=== PATIENT | female | born 1965 | race Caucasian/White ===

== ENCOUNTER 2020-03-17 15:33 | Outpatient (CLI) | payer OTHER, SELFPAY ==
--- NOTE | ~2020-03-17 | XR_ITS ---
XR_CERV2-3V_CR DATE: 03/17/2020 16:00 INDICATION: Neck pain, diminished range of motion. Vertigo. TECHNIQUE: AP, open-mouth, lateral views COMPARISON: 01/23/2007 cervical spine FINDINGS: There is straightening of the cervical spine. There is moderately severe degenerative disc disease at C3-4, C4-5, C5-6 and C6-7. There is moderate degenerative disc disease and mild anterolisthesis at C7-T1. C1 and C2 are normally aligned and the odontoid process is intact. No fracture or dislocation, locked facet or prevertebral soft tissue swelling. There is degenerative spurring at the uncovertebral joints throughout the cervical spine. IMPRESSION: Straightening of the cervical spine Extensive degenerative changes Reviewed, dictated and finalized at Location A. Reviewed, dictated and finalized at location B. UCT LINE MANAGER
== END 2020-03-17 15:34 | disposition home or self-care (01) ==
LOC: ANHIMG 15:39
PROVIDERS: PCP Family Medicine; Visit Provider Otolaryngology
DX: H81.10 Benign paroxysmal vertigo, unspecified ear (principal); M50.30 Other cervical disc degeneration, unspecified cervical region
CPT/HCPCS: 72040

== ENCOUNTER 2020-04-04 15:13 | Outpatient (CLI) | payer OTHER, SELFPAY ==
--- NOTE | ~2020-04-04 | US_ITS ---
EXAMINATION: US carotid duplex BI DATE: 04/04/2020 16:04 INDICATION: Headache. TECHNIQUE: Grayscale, color Doppler, and pulsed Doppler images of the cervical carotid arteries were obtained. The degree of vessel stenosis is placed in one of the following categories: normal, <50%, 5 0-69%, >=70% but less than near-occlusion, near-occlusion, or total occlusion. Note that percent sten osis relative to normal distal artery lumen diameter is indirectly measured from velocity measurement s as described by Sanjeev, et al. Radiology 2003; [id number]:[id number]. COMPARISON: None. FINDINGS: RIGHT: The right common carotid artery (CCA) peak systolic velocity (PSV) is 157 cm/s. The right internal ca rotid artery (ICA) PSV is 85 cm/s. The right ICA end-diastolic velocity (EDV) is 32 cm/s. The right I CA/CCA PSV ratio is 0.5. Grayscale and color Doppler images yield an estimate of <50% diameter reduct ion from plaque in the ICA. There is antegrade flow in the right vertebral artery. LEFT: The left CCA PSV is 111 cm/s. The left ICA PSV is 75 cm/s. The left ICA EDV is 36 cm/s. The left ICA/ CCA PSV ratio is 0.7. Grayscale and color Doppler images yield an estimate of <50% diameter reduction from plaque in the ICA. There is antegrade flow in the left vertebral artery. IMPRESSION: 1. <50% stenosis in the right internal carotid artery. 2. <50% stenosis in the left internal carotid artery. Reviewed, dictated and finalized at location B. NDITIONER
== END 2020-04-04 15:14 | disposition home or self-care (01) ==
PROVIDERS: PCP Family Medicine; Visit Provider Family Medicine
DX: I65.23 Occlusion and stenosis of bilateral carotid arteries (principal); R51.9 Headache, unspecified
CPT/HCPCS: 93880

== ENCOUNTER → 2020-04-19 17:11 | Outpatient (CLI) | payer OTHER, SELFPAY ==
--- NOTE | ~2020-04-19 | XR_ITS ---
EXAMINATION: XR chest 2V 04/19/2020 17:36 INDICATION: Dyspnea PROCEDURE: 2 view chest COMPARISON: 06/07/2017 FINDINGS: The lungs are clear. Mild cardiomegaly. There are no pleural effusions. There is no pneumo thorax suspected. IMPRESSION: 1: NO ACUTE CARDIOPULMONARY DISEASE. Reviewed, dictated and finalized at location A. RAFT ENGINE DISMANTLER
== END ==
PROVIDERS: PCP Family Medicine; Visit Provider Family Medicine
DX: R06.00 Dyspnea, unspecified (principal)
CPT/HCPCS: 71046

== ENCOUNTER → 2020-04-27 11:55 | Outpatient (CLI) | payer OTHER, SELFPAY ==
--- NOTE | ~2020-04-27 | CT_ITS ---
EXAMINATION: CTA chest PE protocol EXAM DATE: 04/27/2020 12:24 INDICATION: dyspnea, positive d-dimer. TECHNIQUE: Spiral CTA of the chest (pulmonary arteries) was performed with 100 cc Omnipaque 350 intr avenous contrast injection. Images were acquired during the pulmonary arterial phase. Coronal maxi mum intensity projection 3D-reconstructions were created by the technologist on dedicated workstation . Axial, coronal and sagittal reformatted images were reviewed. The dose-length product (DLP) for t his examination was 490.95 mGy-cm. The exposure was tailored according to patient size (auto mA exp osure control), and iterative reconstruction (ASIR) was used as additional dose reduction technique. There is no prior study for comparison. FINDINGS: Pulmonary arteries are well opacified and without intraluminal filling defects. No thora cic aortic dissection. Couple of basilar nodules 3 mm or less likely noncalcified granulomas.. Ther e are no pleural or pericardial effusions. Tracheobronchial tree is patent. There is no mediastin al, hilar or axillary lymphadenopathy. There is no pneumothorax. Mild cardiomegaly. No evidence of coronary arterial calcification. Upper abdomen is unremarkable. The bones are unremarkable. IMPRESSION: 1. No pulmonary emboli or acute findings. 2. Mild cardiomegaly. Reviewed, dictated and finalized at location B. CONTROL OPERATOR
== END ==
PROVIDERS: PCP Family Medicine; Visit Provider Family Medicine
DX: R06.02 Shortness of breath (principal); R79.1 Abnormal coagulation profile; I51.7 Cardiomegaly
CPT/HCPCS: 71275; Q9967

== ENCOUNTER 2020-06-06 14:31 | Outpatient (CLI) | payer OTHER, SELFPAY ==
--- NOTE | ~2020-06-06 | XR_ITS ---
EXAMINATION: XR chest 2V 06/06/2020 15:49 INDICATION: Upper epigastric pain. PROCEDURE: PA and lateral views of the chest COMPARISON: No prior studies for comparison. FINDINGS: The lungs are clear. The cardiomediastinal silhouette is large. There are no pleural effus ions. There is no pneumothorax suspected. IMPRESSION: 1: NO ACUTE CARDIOPULMONARY DISEASE. Reviewed, dictated and finalized at location B. D CARE AIDE
--- NOTE | ~2020-06-06 | XR_ITS ---
EXAMINATION: XR abdomen/kub 1V INDICATION: Epigastric abdominal pain TECHNIQUE: Supine views of the abdomen were obtained on 2 radiographs. COMPARISON: None FINDINGS: There are no dilated loops of bowel. No free intraperitoneal gas is identified. Cholecystec darrel clips are noted in the right upper quadrant. There are phleboliths of the left pelvis. Mild hip osteoarthritis is noted. IMPRESSION: 1. No radiographic correlate for the patient's symptoms. Reviewed, dictated and finalized at location A. ATOR COATING FURNACE
[2020-06-06 15:07] LABS: Basophils Absolute Auto 0.1 K/mm3 (0.0-0.1); Basophils Percent Auto 0.8 % (0.2-1.2); Eosinophils Absolute Auto 0.2 K/mm3 (0-0.3); Eosinophils Percent Auto 2.4 % (0-4.4); Hematocrit 40.8 % (37.0-47.0); Hemoglobin 13.6 g/dL (12.0-15.0); Immature Granulocyte Absolute 0.01 K/mm3 (0.00-0.031); Immature Granulocyte Percent A 0.2 % (0-0.5); Immature Platelet Fraction Pct 11.8 % (0.9-11.2); Lymphocytes Absolute Auto 1.25 K/mm3 (0.9-3.2); Lymphocytes Percent Auto 19.9 % (18.3-44.2); Mean Corpuscular HGB Conc 33.3 g/dl (32-36); Mean Corpuscular Hemoglobin 28.8 pg (26-34); Mean Corpuscular Volume 86.4 fl (80-100); Mean Platelet Volume 12.9 fl (7.4-10.4); Monocytes Absolute Auto 0.6 K/mm3 (0.1-0.6); Monocytes Percent Auto 8.9 % (2.6-8.5); Neutrophils Absolute Auto 4.3 K/mm3 (1.3-6.7); Neutrophils Percent Auto 67.8 % (45.5-73.1); Platelet Count Result 179 k/mm3 (150-375); Red Blood Count 4.72 M/mm3 (4.2-5.4); Red Cell Distribution Width 13.4 % (11.5-14.5); White Blood Count 6.3 K/mm3 (4.5-10.0)
[2020-06-06 15:20] LABS: Alanine Aminotransferase 52 U/L (4-35); Albumin Level 4.1 g/dL (3.5-5.1); Alkaline Phosphatase 68 U/L (38-126); Amylase 52 U/L (30-110); Anion Gap 12 mmol/L (8-16); Aspartate Amino Transferase 36 U/L (14-36); Bilirubin,Total 1.4 mg/dL (0.2-1.3); Blood Urea Nitrogen 17 mg/dL (7-17); Carbon Dioxide 20 mmol/L (22-30); Chloride 106 mmol/L (98-107); Estimated Glomerular Filt Rate 51; Glucose 111 mg/dL (65-105); Lipase 74 U/L (23-300); Potassium 4.4 mmol/L (3.4-5.0); Sodium 138 mmol/L (137-145)
== END 2020-06-06 14:32 | disposition home or self-care (01) ==
PROVIDERS: PCP Family Medicine; Visit Provider Family Medicine
DX: R10.9 Unspecified abdominal pain (principal); R05 Cough
CPT/HCPCS: 36415; 71046; 74018; 80053; 82150; 83690; 85025; 85055

== ENCOUNTER 2020-06-07 15:30 | Inpatient (IN) | payer OTHER, SELFPAY ==
[2020-06-07] VITALS (10 sets, daily range): BP systolic 114–131; BP diastolic 85–93; PULSE 86–111; RESP 17–27; TEMP 36.3–36.5; O2SAT 96–100; BMI 27.7
--- NOTE | ~2020-06-07 | XR_ITS ---
EXAMINATION: XR chest 2V 06/07/2020 16:15 INDICATION: Chest pain and shortness of breath PROCEDURE: PA and lateral views of the chest COMPARISON: 06/06/2020 FINDINGS: The lungs are clear. The cardiomediastinal silhouette is within normal limits. There are no pleural effusions. There is no pneumothorax suspected. IMPRESSION: 1: NO ACUTE CARDIOPULMONARY DISEASE. Reviewed, dictated and finalized at location B. RPILLAR MECHANIC
--- NOTE | 2020-06-07 15:33 | ECG_ITS ---
Measurements Intervals [place] Rate: 96 P: 59 MT: 170 QRS: 52 QRSD: 92 T: 180 QT: 304 QTc: 385 Interpretive Statements SINUS RHYTHM POSSIBLE LEFT ATRIAL ENLARGEMENT LOW QRS VOLTAGE- DIFFUSE LEADS ST ELEVATION IN ANTEROLAT/INF LEADS- CONSIDER PERICARDITIS, ACUTE INJURY OR EARLY REPOLARIZATION ABNORMALITY ABNORMAL ECG Electronically Signed On 06-07-2020 16:06:59 LAND AGENT by Jonathan Reeves D.O.
[2020-06-07 15:56] LABS: Basophils Percent Auto 0.7 % (0.2-1.2); Eosinophils Absolute Auto 0.2 K/mm3 (0-0.3); Eosinophils Percent Auto 2.6 % (0-4.4); Hematocrit 39.4 % (37.0-47.0); Hemoglobin 13.2 g/dL (12.0-15.0); Immature Granulocyte Absolute 0.01 K/mm3 (0.00-0.031); Immature Granulocyte Percent A 0.2 % (0-0.5); Lymphocytes Absolute Auto 1.04 K/mm3 (0.9-3.2); Lymphocytes Percent Auto 17.2 % (18.3-44.2); Mean Corpuscular HGB Conc 33.5 g/dl (32-36); Mean Corpuscular Hemoglobin 28.9 pg (26-34); Mean Corpuscular Volume 86.4 fl (80-100); Mean Platelet Volume 12.5 fl (7.4-10.4); Monocytes Absolute Auto 0.6 K/mm3 (0.1-0.6); Monocytes Percent Auto 9.1 % (2.6-8.5); Neutrophils Absolute Auto 4.2 K/mm3 (1.3-6.7); Neutrophils Percent Auto 70.2 % (45.5-73.1); Platelet Count Result 179 k/mm3 (150-375); Red Blood Count 4.56 M/mm3 (4.2-5.4); Red Cell Distribution Width 13.8 % (11.5-14.5)
[2020-06-07 16:10] LABS: Anion Gap 10 mmol/L (8-16); Blood Urea Nitrogen 17 mg/dL (7-17); Calcium 9.9 mg/dL (8.4-10.2); Carbon Dioxide 21 mmol/L (22-30); Chloride 107 mmol/L (98-107); Estimated CRCL calculation 59 ml/min; Estimated Glomerular Filt Rate 57; Glucose 95 mg/dL (65-105); Potassium 4.1 mmol/L (3.4-5.0); Sodium 138 mmol/L (137-145)
[2020-06-07 16:13] LABS: INR 1.2; Prothrombin Time 15.5 Seconds (11.1-14.7)
[2020-06-07 16:28] LABS: Troponin I 0.138 ng/mL (0.000-0.034)
[2020-06-07 16:47] LABS: NT Pro B Type Natriuretic Pept 7180 PG/ML (5-100)
[2020-06-07] MEDS: ASPIRIN 81 MG CHEWABLE TABLET 324 MG PO (17:00)
--- NOTE | 2020-06-07 17:01 | ED.CHESTPAIN ---
HPI - Chest Pain General Chief Complaint: Chest Pain Stated Complaint: heart issues from biometrics consultant Time Seen by Provider: 06/07/20 16:47 Source: patient Mode of arrival: ambulatory Limitations: no limitations History of Present Illness HPI narrative: This patient is a 55 year old female previously healthy who presents for evaluation of shortness of breath and chest pain with exertion. Patient has been dealing with shortness of breath and chest heaviness since December. She has had a normal treadmill stress test and outpatient evaluation of epigastric pain. She reports her shortness of breath with exertion has gotten worse. She states she can barely walk down the hallway without stopping to catch her breath. She also report heaviness across her chest that occurs with exertion. She reports cough with laying flat, but denies fever, or chills. She denies leg swelling or calf pain. She was evaluated by her primary care physician and Dr. Hyde today in clinic. Dr. Hyde reports patient has signs of CHF. He performed an ECHO and it shows an Ejection Fraction of 25%. He sent patient to ER and states patient will likely get cardiac catheterization tomorrow. Patient reports mild heaviness and she rates it 2/10. Related Data Home Medications Medication Instructions Recorded Confirmed norethindrone acetate 1 mg-ethinyl 1 tablet PO DAILY 09/03/19 06/07/20 estradiol 5 mcg tablet cholecalciferol (vitamin D3) 25 mcg PO DAILY 06/07/20 06/07/20 elderberry fruit [Elderberry] 200 mg PO DAILY 06/07/20 06/07/20 jsyuyvmxhuiq-nmb-pqhm-FA-vit K 1 tablet PO DAILY 06/07/20 06/07/20 [Adults Multivitamin] Allergies Allergy/AdvReac Type Severity Reaction Status Date / Time Penicillins Allergy Unknown Unknown Verified 06/06/20 13:45 Review of Systems Review of Systems: All systems reviewed & are unremarkable except as noted in HPI and below Constitutional: Constitutional: Denies chills and Denies fever(s) Cardiovascular: Cardiovascular: Reports chest pain and Denies rapid heart rate Respiratory: Respiratory: Reports cough and Reports dyspnea Gastrointestinal: Gastrointestinal: Reports abdominal pain, Reports nausea and Denies vomiting [facility] Past Medical History Medical History (Updated 06/07/20 @ 17:27 by Beatrice Amador MD) BPPV (benign paroxysmal positional vertigo) History of cervical fracture C1 Left shoulder pain Surgical History Surgical History History of cholecystectomy Status post hernia repair Social History Social History Smoking status: Never smoker Second hand tobacco smoke exposure: No Alcohol intake: current Drinks per week: 4 Substance use: never Substance use type: does not use Gender identity (if verbalized by the patient): Female Spiritual care concerns: No Exam Const: General: no acute distress and alert Orientation/consciousness: patient oriented x3 Eyes: EOM: EOMs intact bilaterally Chest: Chest palpation & inspection: normal inspection of the chest Resp: Effort & Inspection: normal respiratory effort and no retractions Auscultation: clear to auscultation bilaterally Cardio: Rate: regular rate Rhythm: regular rhythm Heart sounds: no murmurs GI: GI Palp: Yes Soft to palpation, No Tenderness to palpation present (GI) and No Guarding due to palpation present (GI) Auscultation: normal bowel sounds Skin: General skin exam: normal color Rashes: no rashes Neuro: General: patient oriented x3 Extrem: General: no pedal edema Course Reevaluation(s) Reevaluation #1: I Discussed with patient the plan to admit to hospital . She understands she will be see by biometrics consultant for possible cardiac catheterization Date: 06/07/20 Time: 17:20 Consultations Consultation #1: I discussed case with Elisha Gutierrez who accepts to hospitalist service. I Spoke wit
[2020-06-07] MEDS: NITROGLYCERIN OINTMENT 1 INCH DOSE 0.5 INCH TRANSDERM (17:02)
[2020-06-07] MEDS: ENOXAPARIN 80 MG/0.8 ML SYRINGE SUB-Q (18:57)
[2020-06-07] MEDS: FUROSEMIDE INJ 40 MG/4 ML VIAL IV PUSH (18:58)
--- NOTE | 2020-06-07 20:02 | ADMIMU ---
This patient, Fide Blas, was admitted to IMU status, and placed in IMU Room 205-02 on 06-07-20 at 1940. Patient/family oriented to hospital policies and general routines including ID bracelet, bed and alarms, visiting hours, pain management, procedures, bathroom and other care routines, personal items, smoking policy, room service/diet, and visiting hours. Valuables list has been completed. Information on how to activate the Rapid Response Team has been discussed. Patient/Family are encouraged to report perceived risks to care and to ask questions if they do not understand what they are told or what they should do.
[2020-06-07 20:13] LABS: Troponin I 0.147 ng/mL (0.000-0.034)
[2020-06-07 22:17] LABS: Troponin I 0.128 ng/mL (0.000-0.034)
--- NOTE | 2020-06-07 22:39 | PC.NURSE ---
1929 report received report from MAURO Bain
[2020-06-08] VITALS (24 sets, daily range): BP systolic 89–108; BP diastolic 63–80; PULSE 68–92; RESP 12–28; TEMP 36.2–36.7; O2SAT 94–100
--- NOTE | 2020-06-08 01:57 | PM.IMHP ---
H&P: HPI History of Present Illness Date/Time: 06/07/20 23:50 Chief Complaint: Shortness of breath and chest pressure Narrative: Fide Blas is a 55 year old postmenopausal female who presented to the ER from the master of ceremonies's office due to shortness of breath and chest pain. 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 However, in October she began having frontal and occipital headaches. She had an x-ray of her neck which demonstrated severe degenerative changes. It was thought that her headaches were due to stress. 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 She had also had had vertigo with laying down and rolling to the right side. She was referred to ENT agreed her symptoms fit with benign positional vertigo. Also in December she began having symptoms of shortness of breath, GERD, chest heaviness. When her symptoms persisted she was sent for an exercise stress test in January which was negative. She reports that she is very active in up until June was exercising quite vigorously. Once the COVID-19 crisis started she had not been exercising quite as much. In March she began having heartburn and feeling as if she needed to belch. She was also having some chest pressure. She was started on famotidine at that time. A D-dimer was checked at that time. She had a CT a which was negative for PE. A few days later in early April she came down with COVID-19 and had a moderate case of symptoms. She was ill for approximately 3 weeks. She reports that after Covid she felt better for about a week and then began having dyspnea on exertion, paroxysmal nocturnal dyspnea with coughing while supine, and paroxysmal nocturnal dyspnea. She has only been able to walk about 50 yd without marked dyspnea. She has worsening heaviness across her chest with exertion. She has not noticed any lower extremity swelling or calf pain. Given her symptoms of CHF she was referred to cardiology Dr. Steve Hyde. He did a bedside echo which demonstrated EF of 25% and sent the patient to the ER for further evaluation. In the ER the patient was reporting chest heaviness of the 2/10 in intensity. She reports her symptoms almost immediately after she was given a dose of Lasix and some nitropaste in the ER. She has had no further heaviness since arrival to the IMU. She has noticed palpitations with exertion. She reports that ever since December she has noticed that her fitness watch reports increased heart rate. She reports that previously her heart rate was around 50-60 at baseline but is now been reading between 80 and 90. Review of Systems Review of Systems: Narrative: 12 systems were reviewed with pertinent positives and negatives per HPI. Except as documented in the HPI, all other systems were reviewed and are negative. [facility] Past Medical History Medical History (Updated 06/08/20 @ 02:29 by Yen Rand DO) Adhesive capsulitis of shoulder Left BPPV (benign paroxysmal positional vertigo) History of cervical fracture C1 with surgical repair in 2006 Postmenopausal hormone therapy Surgical History Surgical History (Updated 06/08/20 @ 02:21 by Yen Rand DO) History of cholecystectomy 2006 History of right inguinal hernia repair 1997 Family History Family History (Updated 06/08/20 @ 02:22 by Yen Rand DO) Father Hypertension Pacemaker Mother Arthritis Sibling Obese Social History Social History (Updated 06/08/20 @ 02:24 by Yen Rand DO) Social History: She lives with her of 30 years. She has 2 adult children who are healthy. She drinks 3-4 alcoholic beverages each weekend on average. She is a lifelong nonsmoker and does not use illicit substances. 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 She is active and exercises regularly. She has 1 brother who is relatively healthy. Her parents
--- NOTE | 2020-06-08 06:00 | ECHO_ITS ---
Patient Info Name: Fide Blas Age: 55 years : 1965 Gender: Female Ht: 66 in Wt: 171 lbs BSA: 1.92 m2 HR: 87 bpm BP: 89 / 67 mmHg Heart Rhythm: Sinus Rhythm Technical Quality: Good Exam Date: 06/08/2020 2:32 PM Exam Location: [facility] Pulmonary Patient Status: Inpatient Admit Date: 06/07/2020 Staff Ordering Physician: Beatrice Amador MD Freezer Operator: Deni Lara, MICHELE, RT Attending Provider: Marychuy Sanchez MD Referring Physician: Marjorie PINTO; Exam Type: CA echo dop color flow w con Study Info Indications R06.02 - Shortness of breath R07.89 - Other chest pain Complete two-dimensional, color flow and Doppler transthoracic echocardiogram is performed. Strain analysis performed. Summary 1. Complete two-dimensional, color flow and Doppler transthoracic echocardiogram is performed. 2. Left ventricle is of normal size, with mild concentric hypertrophy. There is severe global hypokinesis present with sparing of the apex. Abnormal septal motion is present possibly secondary to a bundle branch block. The visual ejection fraction is 15-20%, the calculated ejection fraction is 20 4%. Grade 2 diastolic dysfunction is present. The global longitudinal strain is-7%, severely reduced, consistent with severe left ventricular dysfunction. 3. Right ventricular chamber dimension is mildly enlarged with moderate hypokinesis.. 4. Left atrial chamber dimension is moderately enlarged. 5. Right atrial chamber dimension is mildly enlarged. 6. There is mild to moderate tricuspid valve regurgitation. 7. No pulmonary hypertension, estimated pulmonary arterial systolic pressure is 33 mmHg. 8. Normal sinus rhythm. Left Ventricle Left ventricular chamber dimension is normal. Left ventricular systolic function is severely reduced, estimated at 15-20%. There is mildly increased left ventricular wall thickness. Left ventricular septal wall motion is abnormal with septal motion related to bundle branch block. The left ventricular diastolic function is grade II diastolic dysfunction. Global longitudinal strain is severely elevated at 7 %. Right Ventricle Right ventricular chamber dimension is mildly enlarged with moderate hypokinesis.. Right ventricular systolic function is reduced. Left Atria Left atrial chamber dimension is moderately enlarged. Right Atria Right atrial chamber dimension is mildly enlarged. Aortic Valve The aortic valve is trileaflet. There is no aortic valve sclerosis. There is no aortic valve stenosis. There is no aortic valve regurgitation. Pulmonic Valve The pulmonic valve is normal. There is no pulmonic valve stenosis. There is no pulmonic regurgitation. Mitral Valve The mitral valve has normal leaflets. There is no mitral valve stenosis. There is trace mitral valve regurgitation. Tricuspid Valve The tricuspid valve leaflets are normal. There is no significant tricuspid valve stenosis. There is mild to moderate tricuspid valve regurgitation. No pulmonary hypertension, estimated pulmonary arterial systolic pressure is 33 mmHg. Pericardium/Pleural The pericardium appears normal. There is no pericardial effusion. Inferior Vena Cava Normal inferior vena cava with <50% collapse upon inspiration consistent with Empty right atrial pressure, 10 mmHg. Aorta The aortic root size at the sinus of Valsalva is normal. The prox ascending aorta size is normal. Left Ventricular Outflow Tract
--- NOTE | 2020-06-08 06:05 | ECG_ITS ---
Measurements Intervals [place] Rate: 82 P: 59 MD: 169 QRS: 52 QRSD: 108 T: 135 QT: 396 QTc: 465 Interpretive Statements SINUS RHYTHM POSSIBLE LEFT ATRIAL ENLARGEMENT LOW QRS VOLTAGE- DIFFUSE LEADS ST ELEVATION IN ANTEROLAT/INF LEADS- CONSIDER PERICARDITIS, ACUTE INJURY OR EARLY REPOLARIZATION ABNORMALITY ABNORMAL ECG Electronically Signed On 06-08-2020 7:11:19 CUSTOMS COMPLIANCE DIRECTOR by Jonathan Reeves D.O.
[2020-06-08 06:49] LABS: Anion Gap 10 mmol/L (8-16); Blood Urea Nitrogen 17 mg/dL (7-17); Calcium 9.1 mg/dL (8.4-10.2); Carbon Dioxide 22 mmol/L (22-30); Chloride 107 mmol/L (98-107); Estimated CRCL calculation 54 ml/min; Estimated Glomerular Filt Rate 51; Glucose 89 mg/dL (65-105); Magnesium 1.5 mg/dL (1.6-2.3); Potassium 3.9 mmol/L (3.4-5.0); Sodium 139 mmol/L (137-145)
[2020-06-08 07:04] LABS: Troponin I 0.207 ng/mL (0.000-0.034)
[2020-06-08] MEDS: FAMOTIDINE 20 MG TABLET 40 MG PO (08:16)
--- NOTE | 2020-06-08 08:42 | PM.CNCAR ---
Assessment and Plan Additional Plan symptoms of exertional chest pain dyspnea as well as positional dyspnea in a 55-year-old lady without previous cardiopulmonary problems and evidence of significant cardiomyopathy by quick look echo that was done in the office yesterday. We will bring the patient for left heart catheterization this morning to for further evaluation of this. Further recommendations will be pending completion of that exam. Jairo Mann MD [facility] History of Present Illness History of Present Illness Consult date/time: 06/08/20 08:42 Consult reason: chest pain and shortness of breath Reason For Visit: CHF Narrative: This is a very pleasant 55-year-old lady of seeing at the request of the hospitalist because of symptoms of chest pain and dyspnea and recently identified systolic cardiomyopathy as an outpatient yesterday. The patient was seen in the office yesterday by my partner, Dr. Hyde in a somewhat urgent fashion at the request of her primary care physician. She has been having symptoms for about a month or so of episodes of exertional dyspnea with chest pain that have been of concern. The symptoms occurred transiently in the fall which triggers stress test of some sort to be done in January which she was told was a negative exam. She then contracted trejo virus in April about a month ago and had some symptoms of shortness of breath or worsening with that. Following that she had symptoms of positional dyspnea and coughing and was referred to the office [facility] when a chest x-ray was done yesterday demonstrating enlargement of her cardiac silhouette. The patient was seen in the office in consultation a a quick look echocardiogram was done which demonstrated evidence of left ventricular dilatation with global hypocontractility. Sugar ECG demonstrated sinus mechanism with low QRS voltage. She was admitted to the hospital for evaluation and angiography was recommended for this morning which did have been a little later today. 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 This is been restress full during the trejo virus pandemic. Review of Systems Constitutional: Constitutional: Reports no additional constitutional complaints Eyes: Eyes: Reports no additional eye complaints ENT: Reports system reviewed and no additional complaints, except as documented Cardiovascular: Cardiovascular: Reports as per HPI Respiratory: Respiratory: Reports dyspnea on exertion Gastrointestinal: Gastrointestinal: Reports no additional gastrointestinal complaints Musculoskeletal: Musculoskeletal: Reports no additional musculoskeletal complaints Neurologic: Reports system reviewed and no additional complaints, except as documented Psychiatric: Psychiatric: Reports no additional psychiatric complaints Endocrine: Endocrine: Reports no additional endocrine complaints Hematologic/Lymphatic: Hematologic/Lymphatic: Reports no additional hematologic/lymphatic complaints Allergic/Immunologic: Allergic/Immunologic: Reports no additional allergic/immunologic complaints PMFSH Past Medical History Medical History (Updated 06/08/20 @ 02:29 by Yen Rand DO) Adhesive capsulitis of shoulder Left BPPV (benign paroxysmal positional vertigo) History of cervical fracture C1 with surgical repair in 2006 Postmenopausal hormone therapy Surgical History Surgical History (Updated 06/08/20 @ 02:21 by Yen Rand DO) History of cholecystectomy 2006 History of right inguinal hernia repair 1997 Family History Family History (Updated 06/08/20 @ 02:22 by Yen Rand DO) Father Hypertension Pacemaker Mother Arthritis Sibling Obese Social History Social History (Up
--- NOTE | 2020-06-08 08:46 | WPDMODSED ---
Moderate Sedation Note-Pt Data Patient Data Diagnosis: exertional chest pain /dyspnea newly diagnosed left ventricular systolic dysfunction Present Complaint: shortness of breath /chest pain with modest activity Procedure to be performed/Plan: left heart catheterization Allergies Allergy/AdvReac Type Severity Reaction Status Date / Time Penicillins Allergy Unknown Unknown Verified 06/06/20 13:45 Home Medications Medication Instructions Recorded Confirmed Type norethindrone acetate 1 mg-ethinyl 1 tablet PO HS 09/03/19 06/07/20 History estradiol 5 mcg tablet famotidine 40 mg tablet 40 mg PO DAILY #30 tablet 04/19/20 06/07/20 Rx ascorbate calcium (vitamin C) 500 mg PO DAILY 06/07/20 06/07/20 History cholecalciferol (vitamin D3) 25 mcg PO DAILY 06/07/20 06/07/20 History elderberry fruit [Elderberry] 200 mg PO DAILY 06/07/20 06/07/20 History vqczfaljeraq-ktw-bluh-FA-vit K 2 tablet PO DAILY 06/07/20 06/07/20 History [Adults Multivitamin] Current Medications: Active Medications Famotidine (Famotidine 20 Mg Tablet) 40 mg PO DAILY RAMONITA Last Admin: 06/08/20 08:16 Dose: 40 mg Documented by: Acetaminophen (Ofirmev 1,000 Mg Ivpb) 1,000 mg in 100 mls @ 400 mls/hr IVPB Q6H PRN PRN Reason: Mild Pain (1-3) or Fever Stop: 06/08/20 17:18 Morphine Sulfate (Morphine Sulfate (*Crx) 4 Mg/Ml Inj) 4 mg IV PUSH Q2H PRN PRN Reason: Pain Rated 7-10 Ondansetron HCl (Ondansetron Inj 4 Mg/2 Ml Vial) 4 mg IV PUSH Q4H PRN PRN Reason: Nausea Sedation/Anesthesia: No previous sedation/anesthesia problems (including family history). [facility] Past Medical History Medical History (Updated 06/08/20 @ 02:29 by Yen Rand DO) Adhesive capsulitis of shoulder Left BPPV (benign paroxysmal positional vertigo) History of cervical fracture C1 with surgical repair in 2006 Postmenopausal hormone therapy Surgical History Surgical History (Updated 06/08/20 @ 02:21 by Yen Rand DO) History of cholecystectomy 2006 History of right inguinal hernia repair 1997 Family History Family History (Updated 06/08/20 @ 02:22 by Yen Rand DO) Father Hypertension Pacemaker Mother Arthritis Sibling Obese Social History Social History (Updated 06/08/20 @ 02:24 by Yen Rand DO) Social History: She lives with her of 30 years. She has 2 adult children who are healthy. She drinks 3-4 alcoholic beverages each weekend on average. She is a lifelong nonsmoker and does not use illicit substances. 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 She is active and exercises regularly. She has 1 brother who is relatively healthy. Her parents are in their 80s in her relatively healthy. Primary care physician: Dr. Kael Lee Code status: Full code Surrogate decision maker: Smoking status: Never smoker Second hand tobacco smoke exposure: No Alcohol intake: current Drinks per week: 3 Substance use: never Substance use type: does not use Gender identity (if verbalized by the patient): Female Spiritual care concerns: Yes (Muslim) Mod Sed Physical Exam Physical Exam Pre Procedural Exam: Normal: Appearance, Neck, Throat, Airway, Lungs, Heart Rate, Heart Rhythm, Neuro Exam and Extremities and Variation: Heart Size ( PMI laterally displaced) Hours since solid foods: 12 Hours since liquid intake: 12 Internal Medicine - PN: Obj Da Vital Signs Vital Signs: Vital Signs - 24 hr 06/07/20 15:40 06/07/20 17:21 06/07/20 17:30 Temperature 36.3 C L Pulse Rate 95 91 92 Respiratory Rate 20 17 20 Blood Pressure 114/89 Pulse Oximetry 99 98 100 06/07/20 17:31 06/07/20 17:45 06/07/20 17:46 Temperature Pulse Rate 91 90 111 H Respiratory Rate 17 27 H 21 H Blood Pressure 131/90 127/93 H Pulse Oximetry 98 96 100 06/07/20 19:45 06/07/20 20:00 06/07/20 20:01 Temperature 36.5 C 36.5 C Pulse Rate 93 88 93 Respiratory Rate 20 20
--- NOTE | 2020-06-08 09:18 | WPDCARDPROC ---
Cardiac Cath Procedure Note Date of procedure:: 06/08/20 Performing physician:: Jairo Mann MD Indication:: newly diagnosed left ventricular systolic dysfunction exertional dyspnea/chest pain Brief clinical history:: this is a previously very healthy 55-year-old lady who was seen in the office yesterday for consultation because of exertional dyspnea, positional dyspnea and chest pain. She had an echocardiogram demonstrating significant left ventricular systolic failure. She was then admitted to the hospital for further evaluation. Procedure Procedure performed:: Left heart catheterization Sedation/Medication given:: fentanyl 25 mg Versed 2 mg case start time 8:58 a.m. case end time 9:14 a.m. sedation provided by Isabela Fitch RN, trained observer Access site:: right femoral artery Estimated blood loss:: 10-15 cc Procedure note:: patient was brought to the cardiac catheterization lab in the postabsorptive state the right femoral triangle was prepared in the normal fashion anesthesia was provided with 20 cc of 1% lidocaine infiltrated locally. Using modified Seldinger technique a 5 Lao sheath was placed into the right femoral artery. After this left heart catheterization was carried out. A 5 Lao angled pigtail catheter was used to document left-sided hemodynamics and inject LV g in the PATTEN projection as well as measure pullback pressures across the aortic valve. After this the pigtail catheter was withdrawn and a standard 5 Lao JR4 catheter was used to engage inject the right coronary artery. After this standard 5 Lao FL4 catheter was used to engage inject the left coronary artery. After this the cineangiograms were reviewed and the case was terminated she was taken to holding area for manual sheath removal. 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 Findings:: Hemodynamics: Central aortic pressure is 98/64 left ventricle 98 over to end-diastolic 16. No transvalvular gradient seen on pullback across the aortic valve. Left ventricle: The LV is mildly enlarged there is an interesting pattern of a band of akinesis around the midportion of the left ventricle from the anterior to the mid inferior wall the basal segments in the apical segments contract reasonably well. The global ejection fraction is reduced at about 25%. The left main coronary artery is large caliber short and widely patent the left anterior descending is a medium caliber to in just around the apex the LAD and its branches are smooth and angiographically normal in appearance the circumflex is a medium caliber artery giving rise to the marginal branches the circumflex and its branches are smooth angiographically normal in appearance the right coronary artery is moderate caliber dominant to the posterior circulation the right coronary artery is smooth and angiographically normal in appearance Conclusion:: 1. significant nonischemic cardiomyopathy with a somewhat unusual the pattern of akinesia in the midportion of the LV as discussed above. Ejection fraction is significantly reduced. 2. Right coronary dominant circulation with no evidence of coronary artery disease Jairo Mann MD [facility]
[2020-06-08] MEDS: SODIUM CHLORIDE 0.9% IV 1,000 ML 125 ML IV CONT (14:29)
[2020-06-08] MEDS: PERFLUTREN LIPID MICROSPHERES 1.5 ML VIAL DILUTED TO 10 ML TOTAL VOLUME IV PUSH (15:07)
--- NOTE | 2020-06-08 17:17 | PM.IMPN ---
Progress Note: A&P Assessment and Plan (1) CHF (congestive heart failure): Qualifiers: Heart failure chronicity: acute Heart failure type: systolic Qualified Code(s): I50.21 - Acute systolic (congestive) heart failure Code(s): I50.9 - Heart failure, unspecified Status: Acute Assessment and Plan: 06/08/20 17:17 Patient is a 55-year-old female with no significant cardiac history, apparently had developed dyspnea on exertion and was seen by her primary care physician and had cardiac stress test which was negative however patient's symptoms were persistent and were progressively getting worse, patient was seen by cardiology's office and apparently there was a echo done which showed severe systolic dysfunction, patient was seen by veneer taping machine offbearer and was taken to cardiac lab and had a cardiac catheterization which showed patient has severe nonischemic cardiomyopathy with ejection fraction of 25%, patient denies any family of cardiac disease, patient denies any alcohol abuse, patient did contracted trejo virus in January. There are no other risk factor with cardiomyopathy, patient does states she is under lot of stress recently and this may have resulted in severe cardiomyopathy, will be seen by veneer taping machine offbearer and further recommendation to follow, will continue to monitor (2) Postmenopausal hormone therapy: Code(s): Z79.890 - Hormone replacement therapy Status: Acute Assessment and Plan: Will continue home regimen (3) Elevated troponin: Code(s): R77.8 - Other specified abnormalities of plasma proteins Status: Acute Assessment and Plan: Plan is above (4) Cardiomyopathy: Qualifiers: Cardiomyopathy type: unspecified Qualified Code(s): I42.9 - Cardiomyopathy, unspecified Code(s): I42.9 - Cardiomyopathy, unspecified Status: Acute Assessment and Plan: Patient with a nonischemic cardiomyopathy etiology uncertain Additional Plan The patient has new onset CHF/cardiomyopathy. It is unclear if this is ischemic or nonischemic in nature. Patient does not have any significant family history of coronary artery disease and is otherwise has no risk factors for coronary artery disease. Possible myocarditis versus Takotsubo cardiomyopathy cardiomyopathy are also possible causes. Cardiology has been consulted and we anticipate patient going for cardiac catheterization at in the a.m.. The patient's symptoms have improved with nitroglycerin and Lasix. Patient is NPO at midnight for anticipated procedure. The patient's hormone replacement therapy is placed on hold. This document was completed by using M*Modal Fluency Direct speech recognition software, therefore, director dental services variances may occur. Despite proof reading and review of records errors may persist. Subjective Date/time seen: 06/08/20 17:17 Patient is a 55-year-old female with no significant cardiac history, apparently had developed dyspnea on exertion and was seen by her primary care physician and had cardiac stress test which was negative however patient's symptoms were persistent and were progressively getting worse, patient was seen by cardiology's office and apparently there was a echo done which showed severe systolic dysfunction, patient was seen by veneer taping machine offbearer and was taken to cardiac lab and had a cardiac catheterization which showed patient has severe nonischemic cardiomyopathy with ejection fraction of 25%, patient denies any family of cardiac disease, patient denies any alcohol abuse, patient did contracted trejo virus in January. There are no other risk factor with cardiomyopathy, patient does states she is under lot of stress recently and this may have resulted in severe cardiomyopathy, will be seen by veneer taping machine offbearer and further recommendation to follow, will continue to monitor Review of Systems Review of Systems: All systems reviewed & are unremarkable except as noted in HPI and below Exam
--- NOTE | 2020-06-08 19:06 | PM.EVENT ---
Event Note Event Note Event Note: Pt had questions and concerns re: her new dx of cardiomyopathy. Discussed cardiomyopathy, different types, possible takotsubo cardiomyopathy. Discussed prognosis: Most people improve and lead a normal life with medical therapy. Discussed treatment: Medications. Reviewed her medications and potential side effects such as low blood pressure. Discussed low but possible risk of serious heart rhythm abnormalities leading to cardiac arrest. Recommended a Life Vest. Patient desires to pursue a life vest. Plan: Observe patient through tomorrow to see how aneesh tolerates meds, possibly discharge tomorrow evening or Saturday morning, order LifeVest, close follow-up in the office for titration of medications. Eventually repeat echo. Patient will try to reduce her stress level.
[2020-06-08] MEDS: SACUBITRIL/VALSARTAN 12-13 MG TABLET 1 TAB PO (21:26)
[2020-06-08] MEDS: carvediloL 3.125 MG TABLET PO (21:54)
[2020-06-09] VITALS (15 sets, daily range): BP systolic 86–116; BP diastolic 61–78; PULSE 75–89; RESP 16–20; TEMP 36.1–36.4; O2SAT 95–99
[2020-06-09 05:26] LABS: Hematocrit 40.3 % (37.0-47.0); Hemoglobin 13.1 g/dL (12.0-15.0); Immature Platelet Fraction Pct 12.3 % (0.9-11.2); Mean Corpuscular HGB Conc 32.5 g/dl (32-36); Mean Corpuscular Hemoglobin 28.8 pg (26-34); Mean Corpuscular Volume 88.6 fl (80-100); Mean Platelet Volume 12.7 fl (7.4-10.4); Platelet Count Result 166 k/mm3 (150-375); Red Blood Count 4.55 M/mm3 (4.2-5.4); Red Cell Distribution Width 14.3 % (11.5-14.5); White Blood Count 5.3 K/mm3 (4.5-10.0)
[2020-06-09 05:36] LABS: Anion Gap 5 mmol/L (8-16); Blood Urea Nitrogen 18 mg/dL (7-17); Calcium 9.3 mg/dL (8.4-10.2); Carbon Dioxide 27 mmol/L (22-30); Chloride 108 mmol/L (98-107); Estimated CRCL calculation 50 ml/min; Estimated Glomerular Filt Rate 46; Glucose 92 mg/dL (65-105); Magnesium 1.7 mg/dL (1.6-2.3); Potassium 4.5 mmol/L (3.4-5.0); Sodium 140 mmol/L (137-145)
[2020-06-09] MEDS: SACUBITRIL/VALSARTAN 12-13 MG TABLET 1 TAB PO ×2 (08:07→20:55)
[2020-06-09] MEDS: FAMOTIDINE 20 MG TABLET 40 MG PO (08:54)
--- NOTE | 2020-06-09 10:54 | PC.NURSE ---
Spoke with Dr. Hill regarding patient's BP of 86/61. Manual BP was 88/64. Coreg and Spironolactone held d/t decreased BP. Pt asymptomatic.
--- NOTE | 2020-06-09 13:10 | PM.IMPN ---
Progress Note: A&P Assessment and Plan (1) Cardiomyopathy: Qualifiers: Cardiomyopathy type: unspecified Qualified Code(s): I42.9 - Cardiomyopathy, unspecified Code(s): I42.9 - Cardiomyopathy, unspecified Status: Acute Assessment and Plan: Patient with a nonischemic cardiomyopathy -could be due to stress and worsened with COVID since she had symptoms prior to shannan COVID but worsened after her illness -Continue coreg, entresto, and spironolactone -await life vest -f/u with cardiology outpt -she is having low blood pressures but no dizziness or lightheadedness. She is having a slight NATH which will hopefully improve with tylenol. (2) CHF (congestive heart failure): Qualifiers: Heart failure chronicity: acute Heart failure type: systolic Qualified Code(s): I50.21 - Acute systolic (congestive) heart failure Code(s): I50.9 - Heart failure, unspecified Status: Acute Assessment and Plan: Acute systolic HF -appears euvolemic now -AGUILAR much improved -Continue tx above (3) Postmenopausal hormone therapy: Code(s): Z79.890 - Hormone replacement therapy Status: Acute Assessment and Plan: Pt takes norethindrone acetate 1 mg-ethinyl estradiol 5 mcg tablet at home -Will ask cardiology's recommendation on continuing this medication (4) Elevated troponin: Code(s): R77.8 - Other specified abnormalities of plasma proteins Status: Acute Assessment and Plan: plan as above (5) Hypomagnesemia: Code(s): E83.42 - Hypomagnesemia Status: Acute Assessment and Plan: Continue [id number] Time Spent With Patient Time with patient: 25 - 35 minutes Subjective Date/time seen: 06/09/20 13:10 Interval history: Pt is a 55 y/o female here for new onset cardiomyopathy. Pt was seen today and we reviewed her case. She states her AGUILAR is much better since being in the hospital and she has not had any swelling. Today she has some pressure like pain in the right side of her chest that is not reproducible and last just a few minutes. It is not associated with walking or moving her arm. She also has a slight headache and feels as though she is in a 'fog' which is abnormal for her. She denies dizziness, lightheadedness, fevers, chills, nausea, vomiting, or SOB. she has't had a BM since saturday and would like some medication for that. Review of Systems Review of Systems: All systems reviewed & are unremarkable except as noted in HPI and below Exam Narrative: Exam Narrative: General: Well developed well nourished patient in NAD HEENT: normocephalic Neck: supple Neuro: Alert and oriented x4 CV:RRR but quiet heart sounds. tele without significant arrhythmias Resp:CTA, no crackles Abd: Soft, non distended. No pain to palpation. Positive bowel sounds Extremities: No swelling, erythema, or pain to palpation. Objective Data Vital Signs Vital Signs: Vital Signs - 24 hr 06/08/20 14:00 06/08/20 16:00 06/08/20 18:00 Temperature 97.2 F L Pulse Rate 84 92 85 Respiratory Rate 28 H 14 Blood Pressure 103/77 101/63 Pulse Oximetry 98 96 06/08/20 20:00 06/08/20 21:54 06/08/20 22:00 Temperature 97.3 F L Pulse Rate 68 68 72 Respiratory Rate 15 Blood Pressure 104/75 Pulse Oximetry 98 06/08/20 23:51 06/09/20 00:00 06/09/20 02:00 Temperature 97.0 F L Pulse Rate 82 82 82 Respiratory Rate 15 16 Blood Pressure 96/72 L Pulse Oximetry 98 98 06/09/20 04:00 06/09/20 06:00 06/09/20 07:57 Temperature 97.0 F L 97.5 F L Pulse Rate 76 84 75 Respiratory Rate 18 16 Blood Pressure 90/68 L 86/61 L Pulse Oximetry 97 95 06/09/20 08:00 06/09/20 10:00 06/09/20 11:49 Temperature Pulse Rate 75 89 75 Respiratory Rate 16 16 Blood Pressure Pulse Oximetry 95 95 06/09/20 12:00 Temperature 96.9 F L Pulse Rate 79 Respiratory Rate 18 Blood Pressure 109/78 Pulse Oxi
[2020-06-09] MEDS: polyethylene glycoL 3350 17 GM POWD.PACK PO (14:18)
--- NOTE | 2020-06-09 14:57 | PM.PNCARD ---
Progress Note: A&P Assessment and Plan (1) Cardiomyopathy: Qualifiers: Cardiomyopathy type: unspecified Qualified Code(s): I42.9 - Cardiomyopathy, unspecified Code(s): I42.9 - Cardiomyopathy, unspecified Status: Acute Assessment and Plan: Echo showed ejection fraction about 20%. Consistent with a cardiac catheterization is seems to be some apical sparing of her cardiomyopathy, suggesting a reverse takotsubo type cardiomyopathy. Whether her Coronavirus infection contributed is unclear. No longer volume overloaded. Did not tolerate 2 drug therapy for her cardiomyopathy secondary to low blood pressure so will just treat with low-dose Entresto and add the carvedilol and spironolactone as an outpatient. She may not need a diuretic other than the spironolactone. Will keep patient again overnight to evaluate her tolerance of medications and also so she can be fitted for her Life Vest. Follow up in the next 1-2 weeks in our office. (2) Acute systolic CHF (congestive heart failure): Code(s): I50.21 - Acute systolic (congestive) heart failure Status: Acute Assessment and Plan: No longer volume overloaded. (3) Low blood pressure: Code(s): I95.9 - Hypotension, unspecified Status: Acute Assessment and Plan: Will back off on heart failure medications. (4) Anxiety: Code(s): F41.9 - Anxiety disorder, unspecified Status: Acute Assessment and Plan: Anxious and worried about her future, job, and exploring ways to address anxiety. May seek counseling. (5) Chest pain: Code(s): R07.9 - Chest pain, unspecified Status: Acute Assessment and Plan: Chest discomfort seems to have resolved. Time Spent With Patient Time: 40 minutes. 30 minutes were spent counseling the patient and her regarding her heart disease and prognosis. Reviewed diet (attention to sodium mostly). Reviewed activity. I hope and expect the patient will go to her normal ADLs at home but recommended she avoid exercise for now. Eventually enroll in cardiac rehab. If she feels tired or winded she should stop and rest but it will not hurt her heart to resume normal activities. No sexual activity for 1 week. Reviewed medications, plans for follow-up and titration etc. Reviewed life vest. Recommend she take her blood pressure once a day about 2 hours after her medications, well-seated for few minutes. Also she can take her blood pressure she feels bed but I discouraged her from checking it 3 or 4 times a day. Patient particularly would like to go back to work if it is safe and she can manage her stress better. 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 Subjective Date/time seen: 06/09/20 14:57 Follow-up for cardiomyopathy and CHF Date of service 06/09/2020: Patient has been very anxious about her diagnosis of cardiomyopathy in concerned about her future. She received the Coreg and low-dose Entresto yesterday but this morning her blood pressure was in the upper 70s and she did not feel well so just received the low-dose Entresto. This afternoon she is feeling better and blood pressure is greater than 100. Getting fitted for hEr Life Vest. Telemetry shows sinus rhythm without arrhythmias, heart rate is improved, was in the 90s now in the 80s. Echo showed ejection fraction about 20%. Consistent with a cardiac catheterization is seems to be some apical sparing of her cardiomyopathy, suggesting a reverse takotsubo type cardiomyopathy. Review of Systems Constitutional: Constitutional: Reports weakness ENT: Denies epistaxis Cardiovascular: Cardiovascular: Denies chest pain, Denies diaphoresis, Denies pedal edema, Denies leg edema, Denies lightheadedness and Denies palpitations Respiratory: Respiratory: Denies cough, Denies dyspnea
[2020-06-09] MEDS: ACETAMINOPHEN 325 MG TABLET 650 MG PO (16:35)
[2020-06-09] MEDS: MAGNESIUM OXIDE 200 MG TABLET PO (20:55)
[2020-06-10] VITALS (9 sets, daily range): BP systolic 103–110; BP diastolic 63–70; PULSE 75–93; RESP 12–20; TEMP 36.4–36.8; O2SAT 96–98
[2020-06-10 05:34] LABS: Alanine Aminotransferase 35 U/L (4-35); Albumin Level 3.4 g/dL (3.5-5.1); Alkaline Phosphatase 48 U/L (38-126); Aspartate Amino Transferase 25 U/L (14-36); Bilirubin,Total 0.5 mg/dL (0.2-1.3)
[2020-06-10 07:34] LABS: Basophils Percent Auto 0.6 % (0.2-1.2); Eosinophils Absolute Auto 0.3 K/mm3 (0-0.3); Eosinophils Percent Auto 5.4 % (0-4.4); Hematocrit 38.8 % (37.0-47.0); Hemoglobin 12.6 g/dL (12.0-15.0); Immature Granulocyte Absolute 0.01 K/mm3 (0.00-0.031); Immature Granulocyte Percent A 0.2 % (0-0.5); Immature Platelet Fraction Pct 13.6 % (0.9-11.2); Lymphocytes Absolute Auto 0.95 K/mm3 (0.9-3.2); Lymphocytes Percent Auto 20.4 % (18.3-44.2); Mean Corpuscular HGB Conc 32.5 g/dl (32-36); Mean Corpuscular Hemoglobin 28.5 pg (26-34); Mean Corpuscular Volume 87.8 fl (80-100); Mean Platelet Volume 13.3 fl (7.4-10.4); Monocytes Absolute Auto 0.4 K/mm3 (0.1-0.6); Neutrophils Percent Auto 64.4 % (45.5-73.1); Platelet Count Result 156 k/mm3 (150-375); Red Blood Count 4.42 M/mm3 (4.2-5.4); Red Cell Distribution Width 14.5 % (11.5-14.5); White Blood Count 4.7 K/mm3 (4.5-10.0)
[2020-06-10 07:48] LABS: Anion Gap 5 mmol/L (8-16); Blood Urea Nitrogen 16 mg/dL (7-17); Calcium 9.5 mg/dL (8.4-10.2); Carbon Dioxide 28 mmol/L (22-30); Chloride 107 mmol/L (98-107); Estimated CRCL calculation 54 ml/min; Estimated Glomerular Filt Rate 51; Glucose 98 mg/dL (65-105); Magnesium 1.8 mg/dL (1.6-2.3); Potassium 4.6 mmol/L (3.4-5.0); Sodium 140 mmol/L (137-145)
[2020-06-10] MEDS: MAGNESIUM OXIDE 200 MG TABLET PO (08:29)
[2020-06-10] MEDS: FAMOTIDINE 20 MG TABLET 40 MG PO (08:29)
[2020-06-10] MEDS: SACUBITRIL/VALSARTAN 12-13 MG TABLET 1 TAB PO (08:29)
[2020-06-10] MEDS: polyethylene glycoL 3350 17 GM POWD.PACK PO (08:29)
--- NOTE | 2020-06-10 11:35 | PM.PNCARD ---
Progress Note: A&P Additional Plan 55-year-old patient with: Significant nonischemic cardiomyopathy felt to have a variant of takotsubo. She is clinically stable for discharge on very low dose of Entresto. She has follow-up scheduled next week in the office hopefully her blood pressure will tolerate reintroduction of beta-ricardo and/or spironolactone for optimum suppression of her renal an angiotensin axis. Obviously long-term prognosis at this point is unclear and pending recovery of left ventricular function. Stable for discharge today at this time in my opinion Jairo Mann MD [facility] Subjective Date/time seen: Date of service: 06/10/20 11:35 Interval history: Follow-up visit in this 55-year-old lady with: Relatively severe cardiomyopathy felt to have a variant of takotsubo based on cardiac cath findings. She has been started on low dose of Entresto. Was hypotensive after this as well as carvedilol and spironolactone were started. The beta-ricardo and the Aldactone have now been discontinued. Asymptomatic this morning feeling well hoping to be discharged. Patient does have a Life Vest for discharge because of her low ejection fraction Exam Narrative: Exam Narrative: Pleasant young woman, no distress but quite anxious Const: General: comfortable and no acute distress; No confusion Orientation/consciousness: No confusion HENMT: Mouth: Yes moist mucous membranes Eyes: Sclera: sclerae normal Pupils: Equal, round and reactive pupils present EOM: EOMs intact bilaterally Neck: Neck: supple and No no JVD Thyroid: thyroid normal Resp: Effort & Inspection: normal respiratory effort Auscultation: clear to auscultation bilaterally Cardio: Rate: regular rate Rhythm: regular rhythm Heart sounds: no gallops and no murmurs Other: PMI is enlarged and laterally displaced GI: Inspection: non-distended Auscultation: normal bowel sounds Skin: General skin exam: normal color Other: Cardiac catheterization site is intact with no ecchymosis or hematoma. Distal pulses are intact. Neuro: General: No confusion Cranial nerves: Yes Equal, round and reactive pupils present Cognition (Neuro): normal cognition Speech: normal speech Extrem: General: normal to inspection, no edema and no pedal edema Psych: Affect: Anxious affect present Objective Data Vital Signs Vital Signs: Vital Signs - 24 hr 06/09/20 11:49 06/09/20 12:00 06/09/20 14:00 Temperature 36.1 C L Pulse Rate 75 79 81 Respiratory Rate 16 18 Blood Pressure 109/78 Pulse Oximetry 95 97 06/09/20 16:00 06/09/20 18:00 06/09/20 20:00 Temperature 36.4 C L 36.4 C Pulse Rate 79 88 82 Respiratory Rate 16 20 Blood Pressure 116/78 100/71 Pulse Oximetry 99 97 06/09/20 22:00 06/09/20 23:43 06/10/20 00:00 Temperature 36.4 C Pulse Rate 84 80 86 Respiratory Rate 20 Blood Pressure 97/67 L Pulse Oximetry 99 06/10/20 02:00 06/10/20 04:00 06/10/20 04:14 Temperature 36.6 C Pulse Rate 75 83 76 Respiratory Rate 20 Blood Pressure 103/68 Pulse Oximetry 98 06/10/20 06:00 06/10/20 08:00 06/10/20 10:00 Temperature 36.4 C L Pulse Rate 85 82 93 Respiratory Rate 12 Blood Pressure 104/63 Pulse Oximetry 96 Intake/Output Intake/Output: Intake & Output 06/07/20 06/08/20 06/09/20 06/10/20 23:59 23:59 23:59 23:59 Intake Total 1362 1820 472 Output Total 3050 2600 650 [employer] [facility] [phone] Meds/Results Medications: Active Medications Generic Name Dose Route Start Last Admin Trade Name Freq PRN Reason Stop Dose Admin Acetaminophen 650 mg 06/09/20 12:42 06/09/20 16:35 Acetaminophen 325 Mg Tablet PO 650 mg Q4H PRN Administration Mild Pain (1-3) or Fever Famotidine 40 mg 06/08/20 09:00 06/10/20 08:29 Famotidine 20 Mg Tablet PO 40 mg DAILY RAMONITA Administration Magnesium Oxide 200 mg 06/09/20 21:00 06/10/20 08:29 Magnesium Oxide 200 Mg Tablet PO 200 mg Q12HR RAMONITA
--- NOTE | 2020-06-10 15:38 | PM.DS ---
DS: Admitting Diagnosis Admitting Diagnosis Admitting Diagnosis: Dyspnea on exertion, Low EF on outpatient echo DS: Discharge Diagnosis Discharge Diagnosis (1) Cardiomyopathy: Qualifiers: Cardiomyopathy type: unspecified Qualified Code(s): I42.9 - Cardiomyopathy, unspecified Code(s): I42.9 - Cardiomyopathy, unspecified Status: Acute Assessment and Plan: Discharge Summary (Date of service 06/10/20): Mrs. lBas is a 55 y.o. female who was ill with covid for 3 weeks in April who presented to the emergency department 06/07/20 for the evaluation of dyspnea on exertion, paroxysmal nocturnal dyspnea with coughing while supine, and orthopnea. She also complained of chest heaviness. She did note onset of shortness of breath, GERD, and chest heaviness in December however her symptoms got significantly worse approximately 1 week after she her COVID symptoms resolved. She was referred to the ER from Dr. Hyde's office when bedside echocardiogram showed EF of approximately 25%. On arrival to the ED, vitals were stable. Initial workup in the emergency department was notable for troponin elevation of 0.138 and unremarkable CXR. She was given IV lasix in the ER with significant symptomatic improvement. She was admitted to the IMU and cardiology was consulted. She underwent cardiac catheterization 06/08/20 which demonstrated significant nonischemic cardiomyopathy with apical sparing of her cardiomyopathy, suggesting a reverse takotsubo type cardiomyopathy, and right coronary dominant circulation with no evidence of coronary artery disease. Echocardiogram demonstrated severe global hypokinesis of LV present with sparing of the apex and EF visualized at 15-20% and calculated at 20%. The cardiomyopathy was possibly stress-induced and worsened by COVID as she did have some symptoms prior to the COVID infection. Coreg, entresto, and spironolactone were initiated but she did not tolerate this well due to low blood pressure. Entresto was initiated and she did seem to tolerate this. She will follow-up with cardiology closely outpateint to see if she will be able to add carvedilol and spironolactone back in the outpatient setting. She was fitted for a life vest. She was advised to adhere to a low sodium diet and avoid exercise. She will need cardiac rehab and she was advised to monitor her weight and blood pressure. She did have some coughing but shortness of breath and chest pain resolved. She was felt stable for discharge from a cardiology standpoint. She was discharged in hemodynamically stable condition on the afternoon of 06/10/20. Worrisome signs and symptoms which would warrant return to the emergency department were discussed and she verbalized understanding. (2) CHF (congestive heart failure): Qualifiers: Heart failure chronicity: acute Heart failure type: systolic Qualified Code(s): I50.21 - Acute systolic (congestive) heart failure Code(s): I50.9 - Heart failure, unspecified Status: Acute Assessment and Plan: Acute systolic and diastolic HF, nonischemic, with severe global hypokinesis of LV present with sparing of the apex and EF visualized at 15-20% and calculated at 20%. She received lasix with significant improvement in dyspnea on exertion and appeared euvolemic. She will follow closely with cardiology. She will wear a life vest and is tolerating a low dose of entresto. (3) Postmenopausal hormone therapy: Code(s): Z79.890 - Hormone replacement therapy Status: Acute Assessment and Plan: Pt takes norethindrone acetate 1 mg-ethinyl estradiol 5 mcg tablet. Discussed with cardiology and this was continued at discharge. (4) Elevated troponin: Code(s): R77.8 - Other specified abnormalities of plasma proteins Status: Acute Assessment and Plan: Likely secondary to nonischemic cardiomyopathy. Cardiac catheterization demonstrated right coronary dominant circulati
== END 2020-06-10 15:53 | disposition home or self-care (01) | DRG 286 ==
LOC: ANHED 17:27 → ANHIMU 22:25
PROVIDERS: Emergency Medicine; Internal Medicine; Physician Assistant; Specialist; Admitting Provider Family Medicine; Emergency Provider General Practice; PCP Family Medicine; Visit Provider Physician Assistant
PROC: 4A023N7 Measurement of Cardiac Sampling and Pressure, Left Heart, Percutaneous Approach (ICD-10-PCS; CPT 93452; principal; 2020-06-08 08:30)
DX: I51.81 Takotsubo syndrome (principal); I50.41 Acute combined systolic (congestive) and diastolic (congestive) heart failure; K21.9 Gastro-esophageal reflux disease without esophagitis; I95.9 Hypotension, unspecified; F41.9 Anxiety disorder, unspecified; Z90.49 Acquired absence of other specified parts of digestive tract; Z79.890 Hormone replacement therapy
CPT/HCPCS: 36415; 71046; 80048; 80076; 83735; 83880; 84443; 84484; 85025; 85027; 85055; 85610; 85730; 93005; 93458; 99285; A9270; C1887; C1894; C8929; J1644; J1650; J1940; J2250; J3010; J7030; J7040; Q9957

== ENCOUNTER 2020-06-16 10:12 | Outpatient (CLI) | payer OTHER, SELFPAY ==
[2020-06-16 10:45] LABS: Anion Gap 9 mmol/L (8-16); Blood Urea Nitrogen 19 mg/dL (7-17); Calcium 9.2 mg/dL (8.4-10.2); Carbon Dioxide 23 mmol/L (22-30); Chloride 108 mmol/L (98-107); Estimated Glomerular Filt Rate 51; Glucose 96 mg/dL (65-105); Magnesium 1.9 mg/dL (1.6-2.3); Potassium 4.5 mmol/L (3.4-5.0); Sodium 140 mmol/L (137-145)
== END 2020-06-16 10:13 | disposition home or self-care (01) ==
LOC: ANHLAB 10:15
PROVIDERS: PCP Family Medicine; Visit Provider Physician Assistant
DX: I42.9 Cardiomyopathy, unspecified (principal); I50.21 Acute systolic (congestive) heart failure; E83.42 Hypomagnesemia
CPT/HCPCS: 36415; 80048; 83735

== ENCOUNTER 2020-06-23 08:10 | Outpatient (CLI) | payer OTHER, SELFPAY ==
[2020-06-23 08:49] LABS: Anion Gap 9 mmol/L (8-16); Blood Urea Nitrogen 23 mg/dL (7-17); Calcium 9.5 mg/dL (8.4-10.2); Carbon Dioxide 29 mmol/L (22-30); Chloride 103 mmol/L (98-107); Estimated Glomerular Filt Rate 39; Glucose 91 mg/dL (65-105); Potassium 3.7 mmol/L (3.4-5.0); Sodium 141 mmol/L (137-145)
[2020-06-23 16:34] LABS: Alanine Aminotransferase 61 U/L (4-35); Albumin Level 4.2 g/dL (3.5-5.1); Alkaline Phosphatase 67 U/L (38-126); Aspartate Amino Transferase 40 U/L (14-36); Bilirubin,Total 0.9 mg/dL (0.2-1.3)
[2020-06-23 16:42] LABS: NT Pro B Type Natriuretic Pept 4380 PG/ML (5-100)
== END 2020-06-23 08:11 | disposition home or self-care (01) ==
PROVIDERS: PCP Family Medicine; Visit Provider Internal Medicine Cardiovascular Disease
DX: I42.8 Other cardiomyopathies (principal)
CPT/HCPCS: 36415; 80048; 80053; 83880

== ENCOUNTER 2020-06-27 09:44 | Outpatient (CLI) | payer OTHER, SELFPAY ==
--- NOTE | ~2020-06-27 | CT_ITS ---
EXAMINATION: CT abdomen pelvis w con DATE: 06/27/2020 10:13 INDICATION: Diverticulitis. TECHNIQUE: Computed tomography (CT) of the abdomen and pelvis was performed . with 100 mL Omnipaque-3 50 intravenous contrast. Automated exposure control and iterative reconstruction technique were emplo yed. The dose-length product was 571.90 mGy-cm. COMPARISON: Chest CT dated 04/27/2020 FINDINGS: Lung bases are clear. Heart size is normal. No pericardial or pleural effusion. Unchanged 6 mm cyst i n the left hepatic lobe. Cholecystectomy clips at the gallbladder fossa. Spleen, pancreas, bilateral adrenal glands and kidneys are normal. Is mild diverticulosis along the descending and sigmoid: . The re is wall thickening and inflammatory stranding centered about diverticula at both the distal descen ding and proximal sigmoid colon consistent with diverticulitis. Small amount of likely reactive free fluid in the pelvis. No abscess or free intraperitoneal gas. No bowel obstruction. Small fat-containi ng umbilical hernia. 2 cm fibroid at the anterior uterine fundus. Bladder and bilateral adnexa are un remarkable. No pathologically enlarged abdominal or pelvic lymphadenopathy. Moderate lower lumbar spo ndylosis. IMPRESSION: 1. Radiographically uncomplicated diverticulitis at 2 separate locations along the distal descending and proximal sigmoid colon. 2. Small amount of likely reactive ascites in the pelvis. No abscess or free intraperineal gas. 3. 2 cm uterine fibroid. Reviewed, dictated and finalized at location B. OR CONTRACT SPECIALIST IMPRESSION: 1. Radiographically uncomplicated diverticulitis at 2 separate locations along the distal descending and proximal sigmoid colon. 2. Small amount of likely reactive ascites in the pelvis. No abscess or free in traperineal gas. 3. 2 cm uterine fibroid.
[2020-06-27 10:48] LABS: Basophils Percent Auto 0.5 % (0.2-1.2); Eosinophils Absolute Auto 0.1 K/mm3 (0-0.3); Eosinophils Percent Auto 1.3 % (0-4.4); Hematocrit 41.3 % (37.0-47.0); Hemoglobin 13.5 g/dL (12.0-15.0); Immature Granulocyte Absolute 0.03 K/mm3 (0.00-0.031); Immature Granulocyte Percent A 0.3 % (0-0.5); Lymphocytes Absolute Auto 1.02 K/mm3 (0.9-3.2); Lymphocytes Percent Auto 11.8 % (18.3-44.2); Mean Corpuscular HGB Conc 32.7 g/dl (32-36); Mean Corpuscular Hemoglobin 29.3 pg (26-34); Mean Corpuscular Volume 89.8 fl (80-100); Mean Platelet Volume 12.1 fl (7.4-10.4); Monocytes Absolute Auto 0.8 K/mm3 (0.1-0.6); Monocytes Percent Auto 9.3 % (2.6-8.5); Neutrophils Absolute Auto 6.6 K/mm3 (1.3-6.7); Neutrophils Percent Auto 76.8 % (45.5-73.1); Platelet Count Result 220 k/mm3 (150-375); Red Cell Distribution Width 14.7 % (11.5-14.5); White Blood Count 8.6 K/mm3 (4.5-10.0)
[2020-06-27 10:58] LABS: Add Urine Microscopic? NO; Appearance Urine Clear (Clear); Bacteria Urine Trace /hpf; Bilirubin Urine Negative (Negative); Blood Urine Negative (Negative); Color Urine Yellow (Yellow); Glucose Urine UA Negative (Negative); Hyaline Casts Urine 15-19 /lpf; Ketones Urine Negative (Negative); Leukocyte Esterase Ur Negative LEU/UL (NEGATIVE); Mucus Urine Rare /lpf; Nitrate Urine Negative (Negative); Protein Urine Negative (Negative); RBC Urine 0-2 /hpf (0-2); Squamous Epithelial Cell Urine Many /hpf (Few); Urobilinogen Urine Negative mg/dL (<2.0); WBC Urine 0-3 /hpf (0-3)
== END 2020-06-27 09:45 | disposition home or self-care (01) ==
PROVIDERS: PCP Family Medicine; Visit Provider Family Medicine
DX: R10.32 Left lower quadrant pain (principal); K57.92 Diverticulitis of intestine, part unspecified, without perforation or abscess without bleeding; R18.8 Other ascites; D25.9 Leiomyoma of uterus, unspecified
CPT/HCPCS: 36415; 74177; 81003; 85025; Q9967

== ENCOUNTER 2020-07-07 07:59 | Outpatient (CLI) | payer OTHER, SELFPAY ==
[2020-07-07 08:44] LABS: Anion Gap 9 mmol/L (8-16); Blood Urea Nitrogen 28 mg/dL (7-17); Calcium 9.6 mg/dL (8.4-10.2); Carbon Dioxide 23 mmol/L (22-30); Chloride 105 mmol/L (98-107); Estimated Glomerular Filt Rate 33; Glucose 103 mg/dL (65-105); Sodium 137 mmol/L (137-145)
== END 2020-07-07 08:00 | disposition home or self-care (01) ==
PROVIDERS: PCP Family Medicine; Visit Provider Internal Medicine Cardiovascular Disease
DX: I42.9 Cardiomyopathy, unspecified (principal)
CPT/HCPCS: 36415; 80048

== ENCOUNTER 2020-07-15 08:00 | Outpatient (CLI) | payer OTHER, SELFPAY ==
[2020-07-15 09:10] LABS: Anion Gap 6 mmol/L (8-16); Blood Urea Nitrogen 21 mg/dL (7-17); Calcium 8.7 mg/dL (8.4-10.2); Carbon Dioxide 25 mmol/L (22-30); Chloride 106 mmol/L (98-107); Estimated Glomerular Filt Rate 46; Glucose 129 mg/dL (65-105); Potassium 4.8 mmol/L (3.4-5.0); Sodium 137 mmol/L (137-145)
== END 2020-07-15 08:01 | disposition home or self-care (01) ==
PROVIDERS: PCP Family Medicine; Visit Provider Internal Medicine Cardiovascular Disease
DX: I42.9 Cardiomyopathy, unspecified (principal)
CPT/HCPCS: 36415; 80048

== ENCOUNTER 2020-07-27 07:30 | Outpatient (RCR) | payer OTHER, SELFPAY ==
[2020-07-19 08:48] VITALS: BP 108/78; PULSE 65; RESP 16; TEMP 36.7; O2SAT 98
[2020-07-19 09:29] VITALS: PULSE 65
--- NOTE | 2020-07-28 07:44 | PCCPR ---
Absent-didnt sleep well. feels she needs to rest this morning.
--- NOTE | 2020-08-01 07:54 | PCCPR ---
Hospitalized Fide called this am states she will not be in. She is hospitalized at [facility]. She presented to ED on Saturday and was sent home. She spoke with the litigation assistant from [facility] [place] and was advised to return to the Ed and then was admited. States she is unsure when she will return. Encouraged her to keep us informed.
--- NOTE | 2020-08-11 13:57 | PCCPR ---
Called Fide today to follow up regarding her hospitalization, no answer, left message.
--- NOTE | 2020-08-17 16:58 | PCCPR ---
Hospitalized Spoke with Fide states she has been in [place] for the last 2 weeks. She has had several diagnostic tests. They have diagnosed her with Giant cell myocarditis. She is currently receiving immunosuppressant therapy. She is supposed to follow up with her new Rn Midwife next and will discuss her plan of care more.Asked she keep us informed. She will remain on hold for now.
--- NOTE | 2020-08-26 10:57 | PCCPR ---
LM asking her to call us with and update of her ability to return.
--- NOTE | 2020-09-30 11:54 | PCCPR ---
Addendum entered by Dominique Gutierrez RN 09/30/20 11:55: Encouraged her to discuss the option of Cardiac rehab with her doctor and would need a new referral to get started as appropriate. Original Note: Discharge Spoke with Fide szymanski. States she had a heart transplant 3 weeks ago and is now home recovering
== END 2020-07-27 19:30 | disposition home or self-care (01) ==
LOC: ANHCPREHAB 07:30
PROVIDERS: PCP Family Medicine; Visit Provider Nurse Practitioner Adult Health
DX: I51.81 Takotsubo syndrome (principal)
CPT/HCPCS: 93798

== ENCOUNTER 2020-07-30 15:55 | Emergency (ER) | payer OTHER, SELFPAY ==
--- NOTE | ~2020-07-30 | XR_ITS ---
EXAMINATION: XR chest 1V portable DATE: 07/30/2020 16:40 INDICATION: Shortness of breath. TECHNIQUE: A single frontal view of the chest was obtained. COMPARISON: Chest 2 views 06/07/2020, CT abdomen and pelvis 06/27/2020 FINDINGS: There is no pneumonia, pleural effusion, pneumothorax. Cardiomegaly is noted. IMPRESSION: 1. Cardiomegaly. Reviewed, dictated and finalized at location A. IMPRESSION: 1. Cardiomegaly.
[2020-07-30 16:19] LABS: Basophils Absolute Auto 0.1 K/mm3 (0.0-0.1); Basophils Percent Auto 0.9 % (0.2-1.2); Eosinophils Absolute Auto 0.1 K/mm3 (0-0.3); Eosinophils Percent Auto 1.7 % (0-4.4); Hematocrit 44.7 % (37.0-47.0); Hemoglobin 14.6 g/dL (12.0-15.0); Immature Granulocyte Absolute 0.02 K/mm3 (0.00-0.031); Immature Granulocyte Percent A 0.3 % (0-0.5); Lymphocytes Absolute Auto 1.36 K/mm3 (0.9-3.2); Lymphocytes Percent Auto 20.8 % (18.3-44.2); Mean Corpuscular HGB Conc 32.7 g/dl (32-36); Mean Corpuscular Hemoglobin 29.2 pg (26-34); Mean Corpuscular Volume 89.4 fl (80-100); Mean Platelet Volume 12.2 fl (7.4-10.4); Monocytes Absolute Auto 0.6 K/mm3 (0.1-0.6); Neutrophils Absolute Auto 4.4 K/mm3 (1.3-6.7); Neutrophils Percent Auto 67.3 % (45.5-73.1); Platelet Count Result 179 k/mm3 (150-375); Red Cell Distribution Width 15.4 % (11.5-14.5); White Blood Count 6.5 K/mm3 (4.5-10.0)
[2020-07-30 16:22] VITALS: BP 104/81; PULSE 81; RESP 18; TEMP 36.6; O2SAT 92
--- NOTE | 2020-07-30 16:30 | ECG_ITS ---
Measurements Intervals [place] Rate: 92 P: 102 [place]: 67 QRS: -87 QRSD: 184 T: 241 QT: 412 QTc: 511 Interpretive Statements SINUS RHYTHM POSSIBLE LEFT ATRIAL ENLARGEMENT LOW VOLTAGE- DIFFUSE LEADS BORDERLINE T WAVE ABNORMALITY- DIFFUSE LEADS BASELINE ARTIFACT- I, II, AVR, AVL, V3 BORDERLINE ECG Electronically Signed On 07-30-2020 20:37:35 CDT by Jonathan Reeves D.O.
[2020-07-30 16:32] LABS: Alanine Aminotransferase 94 U/L (4-35); Albumin Level 4.4 g/dL (3.5-5.1); Alkaline Phosphatase 75 U/L (38-126); Anion Gap 13 mmol/L (8-16); Aspartate Amino Transferase 75 U/L (14-36); Bilirubin,Total 1.6 mg/dL (0.2-1.3); Blood Urea Nitrogen 20 mg/dL (7-17); Carbon Dioxide 20 mmol/L (22-30); Chloride 104 mmol/L (98-107); Estimated CRCL calculation 35 ml/min; Estimated Glomerular Filt Rate 36; Glucose 103 mg/dL (65-105); Potassium 4.8 mmol/L (3.4-5.0); Sodium 137 mmol/L (137-145)
[2020-07-30 16:40] LABS: NT Pro B Type Natriuretic Pept 10400 PG/ML (5-100)
[2020-07-30] MEDS: FUROSEMIDE INJ 40 MG/4 ML VIAL IV PUSH (16:40)
--- NOTE | 2020-07-30 16:43 | PC.NURSE ---
called chemAlfonso, added on Trop 1642
[2020-07-30 17:14] LABS: Troponin I 0.055 ng/mL (0.000-0.034)
[2020-07-30 17:26] LABS: Add Urine Microscopic? YES; Appearance Urine Clear (Clear); Bilirubin Urine Negative (Negative); Blood Urine Negative (Negative); Color Urine Yellow (Yellow); Glucose Urine UA Negative (Negative); Hyaline Casts Urine 20-29 /lpf; Ketones Urine Negative (Negative); Leukocyte Esterase Ur Negative LEU/UL (Negative); Mucus Urine Rare /lpf; Nitrate Urine Negative (Negative); Protein Urine 1+ mg/dL (Negative); RBC Urine 0-2 /hpf (0-2); Specific Grav Ur 1.008 (1.001-1.035); Squamous Epithelial Cell Urine Occasional /hpf (Few); Urobilinogen Urine Negative mg/dL (<2.0); WBC Urine 0-3 /hpf
[2020-07-30 18:49] VITALS: BP 106/89; PULSE 85; RESP 18; O2SAT 98
--- NOTE | 2020-07-30 19:27 | ED.GENADULT ---
HPI - General Adult General Chief complaint: Chest Pain Stated complaint: chest pain Time Seen by Provider: 07/30/20 16:03 Source: patient Mode of arrival: ambulatory Limitations: no limitations History of Present Illness HPI narrative: Patient with history of nonischemic cardiomyopathy presents with chief complaint of worsening shortness of breath with exertion over the past week and a half. Patient states she had Covid in April and in May she was diagnosed with cardiomyopathy and heart failure. Patient states that she is managed by her animal biologist Dr. Mann and his group. She reports that she has been doing quite well so a few weeks ago she was able to come down to 20 mg of Lasix daily. She states she began to feel some shortness of breath with exertion so they increased her to 20 mg twice daily. Patient reports she received her Covid vaccination approximately a week ago and began feeling more short of breath with exertion and fatigue but she attributed it to postvaccination normal side effects. However as time has continued she called the animal biologist office and spoke to Dr. Sutherland informed her to come to the emergency department to be evaluated as she believes her symptoms are related to worsening heart failure. Patient also notes that her lower extremities. She states that her oxygen levels have stayed steady. She reports that her weight has change approximately 3 pounds over the past week or so. She reports decrease in appetite. She reports a constant dry cough that causes chest soreness, but denies chest pain. She denies syncope, dizziness, palpitations, or extremity edema. Related Data Home Medications Medication Instructions Recorded Confirmed norethindrone acetate 1 mg-ethinyl 1 tablet PO HS 09/03/19 07/19/20 estradiol 5 mcg tablet Adults Multivitamin 2 tablet PO DAILY 06/07/20 06/14/20 ascorbate calcium (vitamin C) 500 mg PO DAILY 06/07/20 07/19/20 cholecalciferol (vitamin D3) 25 mcg PO DAILY 06/07/20 07/19/20 elderberry fruit 200 mg PO DAILY 06/07/20 07/19/20 bacillus coagulans-inulin tablet PO 07/19/20 [Probichew] furosemide 20 mg BID 07/19/20 07/25/20 metoprolol succinate 25 mg PO DAILY 07/19/20 07/19/20 Allergies Allergy/AdvReac Type Severity Reaction Status Date / Time Penicillins Allergy Unknown Unknown Verified 06/27/20 08:14 Review of Systems Review of Systems: Narrative: CONSTITUTIONAL: Denies fever, chills, or sweats. EYES: Denies visual changes, redness, or discharge. ENT: Denies rhinorrhea, congestion, sore throat, or otalgia. CARDIOVASCULAR: Denies chest pain, palpitations, or edema. RESPIRATORY: cough and dyspnea on exertion. GASTROINTESTINAL: Denies abdominal pain, nausea, vomiting, or diarrhea. GENITOURINARY: Denies dysuria or hematuria. SKIN: Denies rash or itching. MUSCULOSKELETAL: Denies back pain, joint pain, or myalgia. NEUROLOGIC: Denies headache, numbness, dizziness, or weakness. PSYCHIATRIC: Denies anxiety or depression. [facility]LY [facility] Past Medical History Medical History (Updated 07/30/20 @ 19:38 by Jillian Solano PA-C) Adhesive capsulitis of shoulder Left BPPV (benign paroxysmal positional vertigo) History of cervical fracture C1 with surgical repair in 2006 Postmenopausal hormone therapy Takotsubo cardiomyopathy Surgical History Surgical History (Updated 06/08/20 @ 02:21 by Yen Rand DO) History of cholecystectomy 2006 History of right inguinal hernia repair 1997 Family History Family History (Updated 07/19/20 @ 08:45 by Dominique Gutierrez RN) Father Pacemaker Hypertension Mother Arthritis Sibling Obese Grandparent Cerebrovascular accident Breast cancer Social History Social History Social History: She lives with her of 30 years. She has 2 adult children who are healthy. She drinks 3-4 alcoholic beverages each weekend on average. She is a lifelong nonsmoker and
--- NOTE | 2020-07-30 20:01 | PC.NURSE ---
Pt presented to ED with complaints of chest pain. Pt states pain is intermittent. Breathing noted to be even and unlabored at this time and pt is in no obvious distress. Pt able to ambulated in farooq to restroom with steady gait and without difficulty. Pt states she is ready to go home. remains at bedside. Vitals are stable and in pt is alert and oriented x4. Pt provided water per ok from EDNP.
[2020-07-30 20:18] VITALS: BP 105/86; PULSE 96; RESP 18; TEMP 36.8; O2SAT 96
== END 2020-07-30 20:21 | disposition home or self-care (01) ==
PROVIDERS: Physician Assistant; Emergency Provider Emergency Medicine; PCP Family Medicine
DX: I42.9 Cardiomyopathy, unspecified (principal); I50.9 Heart failure, unspecified; Z86.16 Personal history of COVID-19; I51.7 Cardiomegaly
CPT/HCPCS: 36415; 71045; 80053; 81001; 83880; 84484; 85025; 93005; 96374; 99284; J1940

== ENCOUNTER 2020-07-31 20:07 | Inpatient (IN) | payer OTHER, SELFPAY ==
--- NOTE | ~2020-07-31 | US_ITS ---
EXAMINATION: US abdomen limited DATE: 08/02/2020 08:53 INDICATION: Abnormal liver function tests. TECHNIQUE: Multiple grayscale and Doppler ultrasound images of the abdomen were obtained. COMPARISON: CT abdomen and pelvis 06/27/2020, abdomen ultrasound 04/14/2008 FINDINGS: The visualized portions of the head and body of the pancreas are normal. There is a 1.5 cm hyperechoic mass in the liver, stable from 04/14/2008, likely a hemangioma or other benign lesion. Th ere is normal flow in main portal vein. The gallbladder is absent. The common duct is normal and samuel ures 3 mm. IMPRESSION: 1. No etiology for abnormal liver function tests. Reviewed, dictated and finalized at location A.
--- NOTE | ~2020-07-31 | CT_ITS ---
EXAMINATION: CTA chest PE protocol DATE: 07/31/2020 23:31 INDICATION: Shortness of breath. TECHNIQUE: Computed tomography angiography (CTA) of the chest was performed with 100 mL Omnipaque-350 intravenous contrast timed to evaluate the pulmonary arteries. Coronal maximum intensity projection 3D-reconstructions were created by the technologist. Automated exposure control and iterative reconst ruction technique were employed. The dose-length product was 391.07 mGy-cm. COMPARISON: Chest CT 04/27/2020 FINDINGS: There is minimal atelectasis in left lung. No pleural effusion. Cardiomegaly is noted. No p ericardial effusion. There are changes of cholecystectomy. There is no pulmonary embolus. There is a lipoma in left subscapularis muscle. There is mild thoracic spondylosis. IMPRESSION: 1. No pulmonary embolus. 2. Cardiomegaly. Reviewed, dictated and finalized at location A.
--- NOTE | ~2020-07-31 | XR_ITS ---
EXAMINATION: XR chest 2V DATE: 07/31/2020 21:16 INDICATION: Midsternal chest pain. TECHNIQUE: Frontal and lateral views of the chest were obtained. COMPARISON: Chest single view 07/30/2020 FINDINGS: There is no pneumonia, pleural effusion, or pneumothorax. Cardiomegaly is noted. There are surgical clips in right abdomen. IMPRESSION: 1. Cardiomegaly. Reviewed, dictated and finalized at location A. IMPRESSION: 1. Cardiomegaly.
--- NOTE | 2020-07-31 20:31 | ECG_ITS ---
Measurements Intervals [place] Rate: 82 P: 65 [place]: 176 QRS: 31 QRSD: 98 T: 134 QT: 381 QTc: 446 Interpretive Statements SINUS RHYTHM LEFT ATRIAL ENLARGEMENT LOW QRS VOLTAGE- DIFFUSE LEADS NONSPECIFIC ST ELEVATION IN ANTEROLATERAL LEADS- CONSIDER PERICARDITIS, ACUTE INJURY OR EARLY REPOLARIZATION ABNORMALITY BASELINE WANDER- V3-V6 ABNORMAL ECG Electronically Signed On 08-01-2020 7:14:44 CDT by Jonathan Reeves D.O.
--- NOTE | 2020-07-31 20:53 | ED.SOB ---
HPI - SOB/Dyspnea General Chief Complaint: Shortness of Breath/Dyspnea Stated Complaint: cardiac issues Time Seen by Provider: 07/31/20 20:44 Source: patient Mode of arrival: ambulatory Limitations: no limitations History of Present Illness HPI Narrative: Patient is a 55-year-old female complaining of shortness of breath, worse with exertion, started approximately 2 weeks ago but worse the past 2 days. Patient states that she developed a fever today. Patient was seen here yesterday for the same complaints, history of CHF, cardiomyopathy, has a LifeVest on. Denies any chest pain, abdominal pain, nausea, vomiting, diarrhea or chills. Related Data Home Medications Medication Instructions Recorded Confirmed norethindrone acetate 1 mg-ethinyl 1 tablet PO HS 09/03/19 07/19/20 estradiol 5 mcg tablet Adults Multivitamin 2 tablet PO DAILY 06/07/20 06/14/20 ascorbate calcium (vitamin C) 500 mg PO DAILY 06/07/20 07/19/20 cholecalciferol (vitamin D3) 25 mcg PO DAILY 06/07/20 07/19/20 elderberry fruit 200 mg PO DAILY 06/07/20 07/19/20 bacillus coagulans-inulin tablet PO 07/19/20 [Probichew] furosemide 20 mg BID 07/19/20 07/25/20 metoprolol succinate 25 mg PO DAILY 07/19/20 07/19/20 Allergies Allergy/AdvReac Type Severity Reaction Status Date / Time Penicillins Allergy Unknown Unknown Verified 06/27/20 08:14 Review of Systems Review of Systems: All systems reviewed & are unremarkable except as noted in HPI and below Constitutional: Constitutional: Denies body ache(s), Denies chills, Denies excessive sweating, Denies fatigue, Denies fever(s), Denies headache(s), Denies lethargy, Denies malaise, Denies weakness and Denies weight loss Eyes: Eyes: Denies blurry vision, Denies change in vision and Denies loss of vision ENT: Denies dizziness, Denies ear discharge, Denies headache(s), Denies lip swelling, Denies epistaxis, Denies nasal congestion, Denies neck pain, Denies throat swelling and Denies tongue swelling Cardiovascular: Cardiovascular: Denies chest pain, Denies chest pain at rest, Denies chest pain with activity, Denies diaphoresis, Denies rapid heart rate, Denies edema, Denies irregular heart rhythm, Denies lightheadedness and Denies palpitations Respiratory: Respiratory: Denies chest congestion, Denies cough and Denies hemoptysis Gastrointestinal: Gastrointestinal: Denies abdominal pain, Denies melena, Denies hematochezia, Denies diarrhea, Denies nausea, Denies vomiting and Denies hematemesis Musculoskeletal: Musculoskeletal: Denies abnormal gait, Denies deformity, Denies joint swelling, Denies limited range of motion, Denies neck pain and Denies numbness Neurologic: Denies Abnormal speech present, Denies abnormal gait, Denies confusion, Denies dizziness, Denies headache(s), Denies focal weakness, Denies loss of vision, Denies numbness, Denies Other visual disturbances, Denies Sensory deficit (Neuro) and Denies weakness Psychiatric: Psychiatric: Denies confusion, Denies depression, Denies auditory hallucinations, Denies homicidal ideation and Denies suicidal ideation Endocrine: Endocrine: Denies cold intolerance, Denies excessive sweating, Denies fatigue, Denies heat intolerance and Denies palpitations Hematologic/Lymphatic: Hematologic/Lymphatic: Denies easy bleeding and Denies easy bruising Allergic/Immunologic: Allergic/Immunologic: Denies lip swelling, Denies throat swelling and Denies tongue swelling PMFSH Past Medical History Medical History Adhesive capsulitis of shoulder Left BPPV (benign paroxysmal positional vertigo) History of cervical fracture C1 with surgical repair in 2006 Postmenopausal hormone therapy Takotsubo cardiomyopathy Surgical History Surgical History History of cholecystectomy 2006 History of right inguinal hernia repair 1997 Family History Family History (Reviewed 07/31/20 @
[2020-07-31 21:09] LABS: Basophils Absolute Auto 0.1 K/mm3 (0.0-0.1); Basophils Percent Auto 0.6 % (0.2-1.2); Eosinophils Absolute Auto 0.1 K/mm3 (0-0.3); Eosinophils Percent Auto 1.5 % (0-4.4); Hematocrit 39.9 % (37.0-47.0); Hemoglobin 13.4 g/dL (12.0-15.0); Immature Granulocyte Absolute 0.03 K/mm3 (0.00-0.031); Immature Granulocyte Percent A 0.4 % (0-0.5); Lymphocytes Absolute Auto 1.13 K/mm3 (0.9-3.2); Lymphocytes Percent Auto 14.1 % (18.3-44.2); Mean Corpuscular HGB Conc 33.6 g/dl (32-36); Mean Corpuscular Hemoglobin 29.7 pg (26-34); Mean Corpuscular Volume 88.5 fl (80-100); Mean Platelet Volume 12.9 fl (7.4-10.4); Monocytes Absolute Auto 0.8 K/mm3 (0.1-0.6); Neutrophils Absolute Auto 5.9 K/mm3 (1.3-6.7); Neutrophils Percent Auto 73.4 % (45.5-73.1); Platelet Count Result 191 k/mm3 (150-375); Red Blood Count 4.51 M/mm3 (4.2-5.4); Red Cell Distribution Width 15.9 % (11.5-14.5)
[2020-07-31 21:19] VITALS: PULSE 87; RESP 18; TEMP 37.2; O2SAT 97
[2020-07-31 21:22] VITALS: O2SAT 97
[2020-07-31 21:23] LABS: Lactic Acid Reflex 2.5 mmol/L (0.7-2.1)
[2020-07-31 21:24] VITALS: BP 95/84; PULSE 88; RESP 28; O2SAT 98
[2020-07-31] MEDS: FUROSEMIDE INJ 40 MG/4 ML VIAL IV PUSH (21:27)
[2020-07-31 21:29] LABS: INR 1.4; Partial Thromboplastin Time 29.7 SECONDS (22.3-36.8); Prothrombin Time 17.5 Seconds (11.1-14.7)
[2020-07-31 21:42] LABS: Alanine Aminotransferase 317 U/L (4-35); Alkaline Phosphatase 79 U/L (38-126); Anion Gap 10 mmol/L (8-16); Aspartate Amino Transferase 287 U/L (14-36); Bilirubin,Total 1.7 mg/dL (0.2-1.3); Blood Urea Nitrogen 23 mg/dL (7-17); Calcium 8.6 mg/dL (8.4-10.2); Carbon Dioxide 23 mmol/L (22-30); Chloride 102 mmol/L (98-107); Estimated CRCL calculation 35 ml/min; Estimated Glomerular Filt Rate 36; Glucose 101 mg/dL (65-105); Potassium 4.4 mmol/L (3.4-5.0); Sodium 135 mmol/L (137-145)
[2020-07-31 21:58] LABS: NT Pro B Type Natriuretic Pept 13000 PG/ML (5-100); Troponin I 0.053 ng/mL (0.000-0.034)
[2020-07-31 22:02] LABS: D Dimer 5.23 ug/mL (<0.48)
[2020-07-31 22:28] VITALS: BP 90/69; PULSE 76; RESP 21; O2SAT 97
[2020-07-31] MEDS: ONDANSETRON INJ 4 MG/2 ML VIAL IV PUSH (23:18)
[2020-07-31 23:43] VITALS: BP 80/60; PULSE 76; RESP 22; O2SAT 98
--- NOTE | 2020-07-31 23:44 | PC.NURSE ---
pt states she needs to urinate, refusing to use bed daley. this rn tells pt we arent able to get her out of bed due to her blood pressure. pt states she refuses to use bed daley and will hold her urine. this rn instructed pt to let us know when she wants to use bed daley.
[2020-07-31] MEDS: LACTATED RINGERS 500 ML 999 ML IV CONT (23:48)
[2020-08-01] VITALS (18 sets, daily range): BP systolic 86–104; BP diastolic 60–80; PULSE 67–98; RESP 16–18; TEMP 36.2–37; O2SAT 95–100; BMI 28.4
[2020-08-01 00:05] LABS: Reflex Lactic Acid Yes or No Add Lactic
[2020-08-01 00:45] LABS: Lactic Acid 2.9 mmol/L (0.7-2.1)
--- NOTE | 2020-08-01 02:51 | PM.IMHP ---
H&P: HPI History of Present Illness Date/Time: 08/01/20 02:51 Chief Complaint: Referred to ER by her Nurse General Duty. Narrative: This is a 55-year-old female who is known to have nonischemic cardiomyopathy with unknown EF of 20% and thought to be a variant of takotsubo. She presented to the emergency room this evening after being referred by Dr. Chester secondary to increased shortness of breath and midsternal chest pressure. The patient is known to have had COVID-19 back in April of this year. On July 18 the patient had her Lasix dose reduced to 20 mg daily instead of twice a day. She received the 1st dose of the Moderna COVID vaccine on July 21 and states that since then she just has not felt the same. She reports having increased shortness of breath, chest heaviness, and a dry hacking cough. The patient did have her Lasix dose increased back to 20 mg twice a day on July 21. All this week the patient has had significant shortness of breath, coughing, and chest discomfort. Today the patient also reports having fever for which she took acetaminophen before coming to the hospital. She was evaluated emergency room and routine labs demonstrated an elevated BNP of 13,000, elevated troponin of 0.053, elevated liver enzymes, and elevated lactic acid of 2.5. The patient's white count is normal. She underwent CTA chest which demonstrated cardiomegaly but no other acute pathology. The patient was treated with 40 mg of IV Lasix which resulted in her systolic blood pressure going from 90s to 70s. The patient was then administered 1.5 L of normal saline IV bolus. She was empirically treated with antibiotics. On my encounter with the patient tonight her blood pressure remains significantly low with a mean arterial pressure in the low 60s. I advised the patient that we should consider possible central line placement and vasopressor support and she verbalized to me that at this time she does not want that. She tells me that she can tell when her blood pressure is too low and that she feels fine right now. I did call and discuss the case in detail with Cardiology, Dr. Mann. On further questioning the patient denies any palpitations, abdominal pain, nausea, vomiting, dysuria, hematuria, lower extremity swelling. At this time the patient no longer has any midsternal chest pain. Cardiology has asked that we admit the patient to the hospital for them and they will evaluate her in the morning. Review of Systems Review of Systems: All systems reviewed & are unremarkable except as noted in HPI and below PMFSH Past Medical History Medical History Adhesive capsulitis of shoulder Left BPPV (benign paroxysmal positional vertigo) History of cervical fracture C1 with surgical repair in 2006 Postmenopausal hormone therapy Takotsubo cardiomyopathy Surgical History Surgical History History of cholecystectomy 2006 History of right inguinal hernia repair 1997 Family History Family History Father Pacemaker Hypertension Mother Arthritis Sibling Obese Grandparent Cerebrovascular accident Breast cancer Social History Social History Social History: She lives with her of 30 years. She has 2 adult children who are healthy. She drinks 3-4 alcoholic beverages each weekend on average. She is a lifelong nonsmoker and does not use illicit substances. 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 She is active and exercises regularly. She has 1 brother who is relatively healthy. Her parents are in their 80s in her relatively healthy. Primary care physician: Dr. Kael Lee Code status: Full code Surrogate decision maker: Smoking status: Never smoker Second hand tob
[2020-08-01] MEDS: ACETAMINOPHEN 325 MG TABLET 650 MG PO ×2 (02:53→15:30)
--- NOTE | 2020-08-01 04:33 | ADMGEN ---
This patient, Fide Blas, was admitted to IMU Room 204-01. Patient/family oriented to hospital policies and general routines including ID bracelet, bed and alarms, visiting hours, pain management, procedures, bathroom and other care routines, personal items, smoking policy, room service/diet, and visiting hours. Information on how to activate the Rapid Response Team has been discussed. Patient/Family are encouraged to report perceived risks to care and to ask questions if they do not understand what they are told or what they should do. report from AROLDO WADE arrived [id number]
[2020-08-01 08:34] LABS: Basophils Absolute Auto 0.1 K/mm3 (0.0-0.1); Basophils Percent Auto 0.9 % (0.2-1.2); Eosinophils Absolute Auto 0.1 K/mm3 (0-0.3); Eosinophils Percent Auto 1.9 % (0-4.4); Hematocrit 38.4 % (37.0-47.0); Hemoglobin 12.8 g/dL (12.0-15.0); Immature Granulocyte Absolute 0.04 K/mm3 (0.00-0.031); Immature Granulocyte Percent A 0.6 % (0-0.5); Lymphocytes Absolute Auto 0.99 K/mm3 (0.9-3.2); Lymphocytes Percent Auto 15.3 % (18.3-44.2); Mean Corpuscular HGB Conc 33.3 g/dl (32-36); Mean Corpuscular Hemoglobin 29.4 pg (26-34); Mean Corpuscular Volume 88.1 fl (80-100); Mean Platelet Volume 12.4 fl (7.4-10.4); Monocytes Absolute Auto 0.6 K/mm3 (0.1-0.6); Monocytes Percent Auto 9.1 % (2.6-8.5); Neutrophils Absolute Auto 4.7 K/mm3 (1.3-6.7); Neutrophils Percent Auto 72.2 % (45.5-73.1); Platelet Count Result 148 k/mm3 (150-375); Red Blood Count 4.36 M/mm3 (4.2-5.4); Red Cell Distribution Width 15.5 % (11.5-14.5); White Blood Count 6.5 K/mm3 (4.5-10.0)
[2020-08-01 08:47] LABS: Lactic Acid Reflex 2.5 mmol/L (0.7-2.1)
[2020-08-01 08:48] LABS: Anion Gap 7 mmol/L (8-16); Blood Urea Nitrogen 21 mg/dL (7-17); Calcium 8.3 mg/dL (8.4-10.2); Carbon Dioxide 25 mmol/L (22-30); Chloride 100 mmol/L (98-107); Estimated CRCL calculation 46 ml/min; Estimated Glomerular Filt Rate 42; Glucose 138 mg/dL (65-105); Magnesium 1.9 mg/dL (1.6-2.3); Potassium 3.8 mmol/L (3.4-5.0); Sodium 132 mmol/L (137-145)
[2020-08-01] MEDS: CHOLECALCIFEROL 1,000 UNITS TABLET 1000 UNITS PO (09:19)
[2020-08-01] MEDS: MAGNESIUM OXIDE 200 MG TABLET PO ×2 (09:19→20:44)
[2020-08-01] MEDS: ASCORBIC ACID 500 MG TABLET PO (09:19)
[2020-08-01] MEDS: MULTIVITAMINS /C LUTEIN (CENTRUM SILVER) TABLET *BKC 2 TAB PO (09:19)
[2020-08-01] MEDS: FAMOTIDINE 20 MG TABLET 40 MG BY MOUTH (09:19)
[2020-08-01] MEDS: BENZONATATE 100 MG CAPSULE 200 MG PO ×3 (11:38→17:08)
[2020-08-01 12:25] LABS: Troponin I 0.051 ng/mL (0.000-0.034)
--- NOTE | 2020-08-01 14:11 | PM.CNCAR ---
Assessment and Plan Assessment and plan (1) HFrEF (heart failure with reduced ejection fraction): Code(s): I50.20 - Unspecified systolic (congestive) heart failure Status: Acute Assessment and Plan: Acute on chronic severe LV systolic dysfunction EF 20% by echo and left heart catheterization May 2020. Nonischemic etiology however precise explanation unclear. Thought at that time to be a variant takotsubo, however, may be a complication of COVID-19 or other as yet identified explanation. Patient was doing well on Entresto, beta ricardo and low-dose Lasix as the patient however asymptomatic lead decompensated. It is unclear if her symptoms are a function of immune reactivation with COVID vaccine, simply decompensated heart failure due to persistent severe LV dysfunction and reduction in Lasix or early development of pulmonary fibrosis. CT of the chest is not consistent with obvious development of fibrosis yet symptoms are clearly out of proportion to oxygen saturations and radiographic imaging. We discussed this at length. It is too soon to determine if it is a longer term COVID sequelae or simply decompensated heart failure. We discussed that at this time it is most prudent to manage her for decompensated heart failure given her severe LV dysfunction may reduction in Lasix with further recommendations to follow. If she does not respond favorably to diuresis and supportive medical therapy for her cardiomyopathy either with hypotension and or worsening renal function inotropic support may be required. We discussed these options at length. I am concerned for hypoperfusion given elevated LFTs. Further workup per primary service. Continue life vest, telemetry. Accurate input and output, daily weight, less than 1500 mg sodium intake daily. Discussed extensively. 65 minutes spent in the care of this patient including bedside evaluation, discussions and chart review. (2) Nonischemic cardiomyopathy: Code(s): I42.8 - Other cardiomyopathies Status: Chronic Assessment and Plan: As above. Repeat 2D echocardiogram. Persistence of severe LV dysfunction would argue against takotsubo variant more concerning for likely COVID-19 complication and/or myocarditis given presenting chest pain, shortness of breath, elevated troponin and persistent LV systolic dysfunction. Cardiac MRI or PET-CT as an outpatient likely warranted. Given her presentation and clinical features highly unlikely LV function has improved significantly but will clarify as above. (3) Type 2 myocardial infarction due to heart failure: Code(s): I50.9 - Heart failure, unspecified; I21.A1 - Myocardial infarction type 2 Status: Acute Assessment and Plan: Normal coronary anatomy left heart catheterization from May 2020 noted. Likely LV strain due to decompensated heart failure, severe LV dysfunction and or myocarditis related to history of COVID-19 infection. Twelve lead EKG abnormal with nonspecific J-point elevation can't exclude pericarditis. As we know her anatomy this is not consistent with acute coronary syndrome. (4) Transaminitis: Code(s): R74.01 - Elevation of levels of liver transaminase levels Status: Acute Assessment and Plan: As above, concern for hypoperfusion although clinically her examination is not consistent with hypoperfusion state nor is she cold and clammy. Otherwise precise etiology unclear at this time. Further workup per hospitalist service. (5) Cough: Code(s): R05 - Cough Status: Acute Assessment and Plan: Likely exacerbated by decompensated heart failure,, can't exclude respiratory process as above. Patient given IV antibiotics initially secondary to reported fever, elevated lactic acid. (6) CKD (chronic kidney disease): Code(s): N18.9 - Chronic kidney disease, unspecified Status: Acute Assessment and Plan: Monitor renal function closely. As above. (
--- NOTE | 2020-08-01 14:46 | PM.IMPN ---
Progress Note: A&P Assessment and Plan (1) Chest pain: Qualifiers: Chest pain type: unspecified Qualified Code(s): R07.9 - Chest pain, unspecified Code(s): R07.9 - Chest pain, unspecified Status: Acute Assessment and Plan: Rule out ACS. The patient will be admitted to IMU, telemetry. Trend troponin. Monitor EKG. Monitor for chest pain. Nitroglycerin as needed for chest pain. Cardiology has been consulted by ER provider. Continue Cardiology recommendations. 08/01/20 14:46 patient is a 55-year-old female with history of severe systolic dysfunction with ejection fraction of 20% secondary nonischemic cardiomyopathy and suspect patient may have a variant of takotsubo. patient recently had a cardiac catheterization and May of 2020 and her coronary arteries were patent, patient was positive for COVID-19 in April of 2020, on July 21 patient received 1st dose of Moderna COVID-19 vaccination and patient states since then she is not been feeling very well with shortness of breath, cough, chest congestion and does not feeling very well, she has been taking acetaminophen, upon arrival patient has elevated BNP of 13,000, LFT, mildly elevated tropes and flat, emergency depart patient was suspected having congestive heart failure and was given IV Lasix 40 mg and her blood pressure dropped from 90 systolic to 70 systolic and patient was given 1.5 L of bolus that has improved her blood pressure, patient is seen by Cardiology since patient recently had a cardiac catheterization in May of 2020 does not recommend cardiac catheterization, suspect patient may have immune response to COVID-19 as well as vaccination, he has have ordered Cardiac Echo to further assess systolic function, patient with elevated liver enzymes etiology uncertain, will order hepatitis panel and abdominal ultrasound to further evaluate, will continue to monitor will follow further recommendation from [employer]. (2) Hypotension (arterial): Qualifiers: Hypotension type: other hypotension type Qualified Code(s): I95.89 - Other hypotension Code(s): I95.9 - Hypotension, unspecified Status: Acute Assessment and Plan: Patient has acute worsening hypotension may be secondary to Lasix therapy that she received tonight. We will continue to monitor the patient's blood pressure closely. I offered central line placement and vasopressor support although the patient refused at this time as she did not believe her blood pressure was low enough. (3) Nonischemic cardiomyopathy: Code(s): I42.8 - Other cardiomyopathies Status: Chronic Assessment and Plan: The patient appears to have a significant nonischemic cardiomyopathy and last known EF was 20% two months ago. Rule out worsening cardiomyopathy and end-stage heart failure. Patient does have life vest on. Continue Cardiology recommendations. (4) Transaminitis: Code(s): R74.01 - Elevation of levels of liver transaminase levels Status: Acute Assessment and Plan: May be secondary to hypoperfusion from arterial hypotension and worsening cardiomyopathy. Monitor LFTs. The patient has had a prior cholecystectomy. (5) Elevated troponin: Code(s): R77.8 - Other specified abnormalities of plasma proteins Status: Acute Assessment and Plan: Rule out ACS. Trend troponin (6) Elevated lactic acid level: Code(s): R79.89 - Other specified abnormal findings of blood chemistry Status: Acute Assessment and Plan: Likely secondary to hypoperfusion and severe cardiomyopathy. Monitor acid-base status. Subjective Date/time seen: 08/01/20 14:46 patient is a 55-year-old female with history of severe systolic dysfunction with ejection fraction of 20% secondary nonischemic cardiomyopathy and suspect patient may have a variant of takotsubo. patient recently had a cardiac catheterization and May of 2020 and her coronary
[2020-08-01] MEDS: FUROSEMIDE INJ 40 MG/4 ML VIAL IV PUSH (15:31)
[2020-08-01 18:06] LABS: Hepatitis B Surface Antigen Negative (Negative)
[2020-08-01 18:12] LABS: HAV RESULT Negative (Negative); Hepatitis B Core IgM Result Negative (Negative)
[2020-08-01 18:23] LABS: Hepatitis C Virus Antibody Negative (Negative)
[2020-08-01] MEDS: MELATONIN 5 MG TABLET PO (20:39)
[2020-08-01] MEDS: SACUBITRIL/VALSARTAN 24-26 MG TABLET 1 TAB PO (20:39)
[2020-08-02] VITALS (7 sets, daily range): BP systolic 92–96; BP diastolic 64–69; PULSE 70–94; RESP 14–18; TEMP 35.9–36.4; O2SAT 98–99
--- NOTE | 2020-08-02 | ECHO_ITS ---
Patient Info Name: Fide Blas Age: 55 years : 1965 Gender: Female Ht: 66 in Wt: 178 lbs BSA: 1.96 m2 HR: 84 bpm BP: 95 / 66 mmHg Heart Rhythm: Sinus Rhythm Technical Quality: Good Exam Date: 08/02/2020 9:32 AM Exam Location: [facility] Patient Status: Inpatient Admit Date: 08/01/2020 Staff Ordering Physician: Dion Bal MD [employer] Professional: Deni Lara RDCS, RT Attending Provider: Danny Maxwell MD Referring Physician: Mally ANTHONY; Exam Type: CA echo dop color flow w con Study Info Indications I50.9 - Heart failure, unspecified Complete two-dimensional, color flow and Doppler transthoracic echocardiogram is performed. Strain analysis performed. Contrast/Agitated Saline Contrast/Ag. Saline: Definity Amount: 3.00 ml Administered By: Jennifer Mary RN Summary 1. Complete two-dimensional, color flow and Doppler transthoracic echocardiogram is performed. 2. Left ventricular systolic function is severely reduced, estimated at 20-25% with relative sparing of the apex and dyskinetic inferoseptal and anteroseptal morales.. 3. There is no increased left ventricular wall thickness. 4. Paradoxical left ventricular septal wall motion abnormality possibly due to LBBB, although more appears more dyskinetic as well. 5. There is a well circumscribed mobile thrombus at the LV apex 1.6cmx1.3cm.. 6. There is mild to moderate mitral valve regurgitation. 7. There is mild to moderate tricuspid valve regurgitation. 8. Mild pulmonary hypertension, estimated pulmonary arterial systolic pressure is 37 mmHg. Left Ventricle Left ventricular chamber dimension is normal. Left ventricular systolic function is severely reduced, estimated at 20-25% with relative sparing of the apex and dyskinetic inferoseptal and anteroseptal morales.. There is no increased left ventricular wall thickness. Paradoxical left ventricular septal wall motion abnormality possibly due to LBBB, although more appears more dyskinetic as well. The left ventricular diastolic function is abnormal. There is a well circumscribed mobile thrombus at the LV apex 1.6cmx1.3cm.. Global longitudinal strain is severely elevated at -6 %. Right Ventricle Right ventricular chamber dimension is normal. Right ventricular systolic function is normal. Left Atria Left atrial chamber dimension is normal. Right Atria Right atrial chamber dimension is moderately enlarged. Aortic Valve The aortic valve is probable trileaflet. There is no aortic valve stenosis. There is no aortic valve regurgitation. Pulmonic Valve The pulmonic valve is not well visualized. There is trace pulmonic regurgitation. Mitral Valve The mitral valve has normal leaflets. There is mild to moderate mitral valve regurgitation. Tricuspid Valve The tricuspid valve leaflets are normal. There is mild to moderate tricuspid valve regurgitation. Mild pulmonary hypertension, estimated pulmonary arterial systolic pressure is 37 mmHg. Pericardium/Pleural The pericardium appears normal. There is trivial pericardial effusion. Inferior Vena Cava Dilated inferior vena cava with no collapse upon inspiration consistent with significantly elevated right atrial pressure, 15 mmHg. Aorta The aortic root size at the sinus of Valsalva is normal. Left Ventricular Outflow Tract Name
[2020-08-02 05:35] LABS: Hematocrit 35.8 % (37.0-47.0); Hemoglobin 11.9 g/dL (12.0-15.0); Mean Corpuscular HGB Conc 33.2 g/dl (32-36); Mean Corpuscular Hemoglobin 29.5 pg (26-34); Mean Corpuscular Volume 88.6 fl (80-100); Mean Platelet Volume 12.8 fl (7.4-10.4); Platelet Count Result 152 k/mm3 (150-375); Red Blood Count 4.04 M/mm3 (4.2-5.4); Red Cell Distribution Width 15.9 % (11.5-14.5); White Blood Count 6.2 K/mm3 (4.5-10.0)
[2020-08-02 05:38] LABS: Alanine Aminotransferase 408 U/L (4-35); Albumin Level 3.3 g/dL (3.5-5.1); Alkaline Phosphatase 77 U/L (38-126); Anion Gap 7 mmol/L (8-16); Aspartate Amino Transferase 252 U/L (14-36); Bilirubin,Total 1.2 mg/dL (0.2-1.3); Blood Urea Nitrogen 22 mg/dL (7-17); Calcium 8.4 mg/dL (8.4-10.2); Carbon Dioxide 23 mmol/L (22-30); Chloride 104 mmol/L (98-107); Estimated CRCL calculation 55 ml/min; Estimated Glomerular Filt Rate 51; Glucose 89 mg/dL (65-105); Potassium 3.8 mmol/L (3.4-5.0); Sodium 134 mmol/L (137-145)
[2020-08-02] MEDS: PERFLUTREN LIPID MICROSPHERES 1.5 ML VIAL DILUTED TO 10 ML TOTAL VOLUME IV PUSH (10:15)
[2020-08-02] MEDS: BENZONATATE 100 MG CAPSULE 200 MG PO ×2 (11:19→15:27)
[2020-08-02] MEDS: SACUBITRIL/VALSARTAN 24-26 MG TABLET 1 TAB PO (11:19)
--- NOTE | 2020-08-02 11:38 | PM.PNCARD ---
Progress Note: A&P Assessment and Plan (1) HFrEF (heart failure with reduced ejection fraction): Code(s): I50.20 - Unspecified systolic (congestive) heart failure Status: Acute Assessment and Plan: Acute on chronic severe LV systolic dysfunction EF 20% by echo and left heart catheterization May 2020. Nonischemic etiology however precise explanation unclear. Thought at that time to be a variant takotsubo, however, may be a complication of COVID-19 or other as yet identified explanation. -patient has responded very well to current therapy. Continue Entresto, Toprol XL. Would advise furosemide 40 mg b.i.d. x2 days then 40 mg once daily thereafter. Basic metabolic panel as an outpatient on Saturday. 20 mEq daily although will take an additional 20 mEq today and tomorrow to equal 20 mEq with b.i.d. in association with increased Lasix dosing. -follow-up in [address] Hyde. -call the office immediately with weight gain 3 lb, increased coughing and or new concerns. -further outpatient referral in management per Dr. Hyde. Continue life vest, telemetry. Patient stable for discharge home. Spent 30 minutes in the care of this patient including at bedside and chart review, decision making. (2) LV (left ventricular) mural thrombus: Code(s): I51.3 - Intracardiac thrombosis, not elsewhere classified Status: Acute Assessment and Plan: LV function remains severely depressed. New LV apical thrombus identified. Initiate systemic anticoagulation Eliquis 5 mg b.i.d.. Discussed pathophysiology, embolic stroke risk as well as risk reduction with systemic anticoagulation balance with bleeding risk. Patient verbalized understanding. (3) Nonischemic cardiomyopathy: Code(s): I42.8 - Other cardiomyopathies Status: Chronic Assessment and Plan: As above. Repeat 2D echocardiogram. Persistence of severe LV dysfunction would argue against takotsubo variant more concerning for likely COVID-19 complication and/or myocarditis given presenting chest pain, shortness of breath, elevated troponin and persistent LV systolic dysfunction. Cardiac MRI or PET-CT as an outpatient likely warranted. Given her presentation and clinical features highly unlikely LV function has improved significantly but will clarify as above. (4) Type 2 myocardial infarction due to heart failure: Code(s): I50.9 - Heart failure, unspecified; I21.A1 - Myocardial infarction type 2 Status: Acute Assessment and Plan: Normal coronary anatomy left heart catheterization from May 2020 noted. Likely LV strain due to decompensated heart failure, severe LV dysfunction and or myocarditis related to history of COVID-19 infection. Twelve lead EKG abnormal with nonspecific J-point elevation can't exclude pericarditis. As we know her anatomy this is not consistent with acute coronary syndrome. (5) Transaminitis: Code(s): R74.01 - Elevation of levels of liver transaminase levels Status: Acute Assessment and Plan: As above, concern for hypoperfusion although clinically her examination is not consistent with hypoperfusion state nor is she cold and clammy. Otherwise precise etiology unclear at this time. Further workup per hospitalist service. Abdominal ultrasound unremarkable. Check LFTs as outpatient. (6) Cough: Code(s): R05 - Cough Status: Acute Assessment and Plan: Clearly exacerbated by decompensated heart failure. Resolved with improvement a volume status. As above. (7) CKD (chronic kidney disease): Code(s): N18.9 - Chronic kidney disease, unspecified Status: Acute Assessment and Plan: Monitor renal function closely. As above. Tolerating therapy well thus far. BP holding nicely. (8) History of COVID-19: Code(s): Z86.16 - Personal history of COVID-19 Status: Acute Assessment and Plan: As above. We discussed the potential exacerbation
[2020-08-02] MEDS: MAGNESIUM OXIDE 200 MG TABLET PO (12:25)
[2020-08-02] MEDS: ASCORBIC ACID 500 MG TABLET PO (12:25)
[2020-08-02] MEDS: FUROSEMIDE 40 MG TABLET PO (12:25)
[2020-08-02] MEDS: FAMOTIDINE 20 MG TABLET 40 MG BY MOUTH (12:25)
[2020-08-02] MEDS: CHOLECALCIFEROL 1,000 UNITS TABLET 1000 UNITS PO (12:25)
[2020-08-02] MEDS: MULTIVITAMINS /C LUTEIN (CENTRUM SILVER) TABLET *BKC 2 TAB PO (12:25)
[2020-08-02] MEDS: APIXABAN 5 MG TABLET PO (12:25)
--- NOTE | 2020-08-02 12:58 | PM.DS ---
DS: Admitting Diagnosis Admitting Diagnosis Admitting Diagnosis: Chief Complaint: Referred to ER by her Relationship Assoc. DS: Discharge Diagnosis Discharge Diagnosis (1) Chest pain: Qualifiers: Chest pain type: unspecified Qualified Code(s): R07.9 - Chest pain, unspecified Code(s): R07.9 - Chest pain, unspecified Status: Acute Assessment and Plan: Rule out ACS. The patient will be admitted to IMU, telemetry. Trend troponin. Monitor EKG. Monitor for chest pain. Nitroglycerin as needed for chest pain. Cardiology has been consulted by ER provider. Continue Cardiology recommendations. 08/01/20 14:46 patient is a 55-year-old female with history of severe systolic dysfunction with ejection fraction of 20% secondary nonischemic cardiomyopathy and suspect patient may have a variant of takotsubo. patient recently had a cardiac catheterization and May of 2020 and her coronary arteries were patent, patient was positive for COVID-19 in April of 2020, on July 21 patient received 1st dose of Moderna COVID-19 vaccination and patient states since then she is not been feeling very well with shortness of breath, cough, chest congestion and does not feeling very well, she has been taking acetaminophen, upon arrival patient has elevated BNP of 13,000, LFT, mildly elevated tropes and flat, emergency depart patient was suspected having congestive heart failure and was given IV Lasix 40 mg and her blood pressure dropped from 90 systolic to 70 systolic and patient was given 1.5 L of bolus that has improved her blood pressure, patient is seen by Cardiology since patient recently had a cardiac catheterization in May of 2020 does not recommend cardiac catheterization, suspect patient may have immune response to COVID-19 as well as vaccination, he has have ordered Cardiac Echo to further assess systolic function, patient with elevated liver enzymes etiology uncertain, will order hepatitis panel and abdominal ultrasound to further evaluate, will continue to monitor will follow further recommendation from Relationship Assoc. (2) Hypotension (arterial): Qualifiers: Hypotension type: other hypotension type Qualified Code(s): I95.89 - Other hypotension Code(s): I95.9 - Hypotension, unspecified Status: Acute Assessment and Plan: Patient has acute worsening hypotension may be secondary to Lasix therapy that she received tonight. We will continue to monitor the patient's blood pressure closely. I offered central line placement and vasopressor support although the patient refused at this time as she did not believe her blood pressure was low enough. (3) Nonischemic cardiomyopathy: Code(s): I42.8 - Other cardiomyopathies Status: Chronic Assessment and Plan: The patient appears to have a significant nonischemic cardiomyopathy and last known EF was 20% two months ago. Rule out worsening cardiomyopathy and end-stage heart failure. Patient does have life vest on. Continue Cardiology recommendations. (4) Transaminitis: Code(s): R74.01 - Elevation of levels of liver transaminase levels Status: Acute Assessment and Plan: May be secondary to hypoperfusion from arterial hypotension and worsening cardiomyopathy. Monitor LFTs. The patient has had a prior cholecystectomy. (5) Elevated troponin: Code(s): R77.8 - Other specified abnormalities of plasma proteins Status: Acute Assessment and Plan: Rule out ACS. Trend troponin (6) Elevated lactic acid level: Code(s): R79.89 - Other specified abnormal findings of blood chemistry Status: Acute Assessment and Plan: Likely secondary to hypoperfusion and severe cardiomyopathy. Monitor acid-base status. DS: Summary Hospital Course Reason for hospitalization: Chief Complaint: Referred to ER by her Relationship Assoc. Narrative: This is a 55-year-old female who is known to have nonischemic card
== END 2020-08-02 15:30 | disposition home or self-care (01) | DRG 280 ==
LOC: ANHED 08-01 02:36 → ANHIMU 08-01 12:59 → ANHICU 08-03 16:02 → ANHIMU 08-03 16:02
PROVIDERS: Internal Medicine Cardiovascular Disease; Admitting Provider Family Medicine; Emergency Provider Emergency Medicine; PCP Family Medicine; Visit Provider Family Medicine
DX: I51.81 Takotsubo syndrome (principal); I50.23 Acute on chronic systolic (congestive) heart failure; I21.A1 Myocardial infarction type 2; I42.8 Other cardiomyopathies; I51.3 Intracardiac thrombosis, not elsewhere classified; R09.89 Other specified symptoms and signs involving the circulatory and respiratory systems; R05 Cough; B94.8 Sequelae of other specified infectious and parasitic diseases; R06.02 Shortness of breath; T50.B95A Adverse effect of other viral vaccines, initial encounter; N18.9 Chronic kidney disease, unspecified; I95.2 Hypotension due to drugs; T50.1X5A Adverse effect of loop [high-ceiling] diuretics, initial encounter; Z90.49 Acquired absence of other specified parts of digestive tract
CPT/HCPCS: 36415; 71045; 71046; 71275; 76705; 80048; 80053; 80074; 81001; 83605; 83735; 83880; 84484; 85025; 85027; 85380; 85610; 85730; 87040; 93005; 96361; 96365; 96367; 96374; 96375; 99284; 99285; A9270; C8929; J0456; J0696; J1940; J2405; J7120; Q9957; Q9967

== ENCOUNTER 2020-08-03 10:14 | Outpatient (CLI) | payer OTHER, SELFPAY ==
[2020-08-03 11:09] LABS: Alanine Aminotransferase 414 U/L (4-35); Albumin Level 3.7 g/dL (3.5-5.1); Alkaline Phosphatase 99 U/L (38-126); Anion Gap 7 mmol/L (8-16); Aspartate Amino Transferase 206 U/L (14-36); Bilirubin,Total 1.5 mg/dL (0.2-1.3); Blood Urea Nitrogen 22 mg/dL (7-17); Calcium 8.9 mg/dL (8.4-10.2); Carbon Dioxide 25 mmol/L (22-30); Chloride 102 mmol/L (98-107); Estimated Glomerular Filt Rate 39; Glucose 105 mg/dL (65-105); Potassium 4.8 mmol/L (3.4-5.0); Sodium 134 mmol/L (137-145)
== END 2020-08-03 10:15 | disposition home or self-care (01) ==
PROVIDERS: PCP Family Medicine; Visit Provider Family Medicine
DX: R74.01 Elevation of levels of liver transaminase levels (principal)
CPT/HCPCS: 36415; 80053

== ENCOUNTER 2020-08-26 08:03 | Outpatient (CLI) | payer OTHER, SELFPAY ==
[2020-08-26 08:27] LABS: Basophils Percent Auto 0.4 % (0.2-1.2); Eosinophils Absolute Auto 0.1 K/mm3 (0-0.3); Eosinophils Percent Auto 1.3 % (0-4.4); Hematocrit 40.2 % (37.0-47.0); Hemoglobin 12.8 g/dL (12.0-15.0); Immature Granulocyte Absolute 0.05 K/mm3 (0.00-0.031); Immature Granulocyte Percent A 0.5 % (0-0.5); Lymphocytes Absolute Auto 2.66 K/mm3 (0.9-3.2); Lymphocytes Percent Auto 26.9 % (18.3-44.2); Mean Corpuscular HGB Conc 31.8 g/dl (32-36); Mean Corpuscular Hemoglobin 28.7 pg (26-34); Mean Corpuscular Volume 90.1 fl (80-100); Mean Platelet Volume 11.9 fl (7.4-10.4); Monocytes Absolute Auto 0.6 K/mm3 (0.1-0.6); Monocytes Percent Auto 6.2 % (2.6-8.5); Neutrophils Absolute Auto 6.4 K/mm3 (1.3-6.7); Neutrophils Percent Auto 64.7 % (45.5-73.1); Platelet Count Result 171 k/mm3 (150-375); Red Blood Count 4.46 M/mm3 (4.2-5.4); Red Cell Distribution Width 16.4 % (11.5-14.5); White Blood Count 9.9 K/mm3 (4.5-10.0)
[2020-08-26 09:03] LABS: Alanine Aminotransferase 48 U/L (4-35); Albumin Level 4.1 g/dL (3.5-5.1); Alkaline Phosphatase 74 U/L (38-126); Anion Gap 11 mmol/L (8-16); Aspartate Amino Transferase 29 U/L (14-36); Bilirubin,Total 1.1 mg/dL (0.2-1.3); Blood Urea Nitrogen 33 mg/dL (7-17); CRP 0.6 mg/dL (<1.0); Calcium 9.5 mg/dL (8.4-10.2); Carbon Dioxide 20 mmol/L (22-30); Chloride 108 mmol/L (98-107); Estimated Glomerular Filt Rate 31; Glucose 105 mg/dL (65-105); Potassium 4.5 mmol/L (3.4-5.0); Sodium 139 mmol/L (137-145)
[2020-08-26 09:15] LABS: NT Pro B Type Natriuretic Pept 15500 pg/mL (5-100)
[2020-08-29 06:23] LABS: Tacrolimus Prograf 10.8 mcg/L
== END 2020-08-26 08:04 | disposition home or self-care (01) ==
PROVIDERS: PCP Family Medicine
DX: I42.8 Other cardiomyopathies (principal); D84.9 Immunodeficiency, unspecified
CPT/HCPCS: 36415; 80053; 80197; 83880; 85025; 86140

== ENCOUNTER → 2022-08-14 14:47 | Outpatient (CLI) | payer OTHER, SELFPAY ==
--- NOTE | ~2022-08-14 | XR_ITS ---
[id number] 08/14/2022 15:31 Indication: Cervicalgia Procedure: 4 views of the cervical spine Comparison: 03/17/2020 Findings: There is degenerative disc disease with marginal osteophytes anteriorly at C3-4, C4-5, C5-6 and to a lesser degree C6-7. No prevertebral soft tissue swelling. There is multilevel uncinate hype rtrophy. Lung apices are normal. There are median sternotomy wires. Odontoid process is normal. Impression: 1: Moderate cervical spondylosis without significant change from prior study allowing for differences of technique. Reviewed, dictated and finalized at location A. Impression: 1: Moderate cervical spondylosis without significant change from prior study al lowing for differences of technique.
== END ==
PROVIDERS: PCP Family Medicine; Visit Provider Family Medicine
DX: M47.812 Spondylosis without myelopathy or radiculopathy, cervical region (principal)
CPT/HCPCS: 72040